=== PATIENT | female | born 1990 | race Two or more races ===

== ENCOUNTER 2024-04-26 12:46 | Emergency (ER) | payer MEDICAID, SELFPAY ==
[2024-04-26 12:48] VITALS: BMI 36.8
[2024-04-26 12:58] VITALS: BP 139/85; PULSE 85; RESP 16; TEMP 37.1; O2SAT 99
--- NOTE | 2024-04-26 13:03 | PD.EDRME ---
Rapid Medical Screening Exam RME Arrival date/time: 04/26/24 12:46 33-year-old female presents emergency department complaint of vaginal bleeding status post LEEP procedure Chief Complaint: Vaginal Bleeding Time Seen by Provider: 04/26/24 12:49 Vital signs: Vital Signs Temperature 98.8 F 04/26/24 12:58 Pulse Rate 85 04/26/24 12:58 Respiratory Rate 16 04/26/24 12:58 Blood Pressure 139/85 H 04/26/24 12:58 Pulse Oximetry (%) 99 04/26/24 12:58 Oxygen Delivery Method Room Air 04/26/24 12:58
[2024-04-26 13:27] LABS: Basophils % (Auto) 0 % (0-2.5); Eosinophils # (Auto) 0.3 Thou/mm3 (0.0-0.5); Eosinophils % (Auto) 4 % (0-10); Hematocrit 36.9 % (36.0-46.0); Hemoglobin 11.5 g/dL (12.0-16.0); Immature Granulocytes % (Auto) 0 % (0-0); Immature Granulocytes Auto 0.03 Thou/mm3 (0.00-0.00); Lymphocytes # (Auto) 2.2 Thou/mm3 (1.0-4.8); Lymphocytes % (Auto) 28 % (10-50); Mean Corpuscular HGB Conc 31.2 g/dl (31.0-37.0); Mean Corpuscular Hemoglobin 26.3 pg (25.0-35.0); Mean Corpuscular Volume 84 fL (80-100); Monocytes # (Auto) 0.4 Thou/mm3 (0.0-0.8); Monocytes % (Auto) 5 % (0-12); Neutrophils # (Auto) 4.9 Thou/mm3 (1.8-7.7); Neutrophils % (Auto) 62 % (37-80); Nucleated Red Blood Cell % 0 /100 WBC (0); Platelet Count 269 Thou/mm3 (140-440); RDW Standard Deviation 43.7 fL (36.4-46.3); Red Blood Count 4.37 Miln/mm3 (4.00-5.20); White Blood Count 7.8 Thou/mm3 (3.6-11.0)
[2024-04-26 13:44] LABS: Alanine Aminotransferase 20 U/L (10-49); Albumin, Serum 4.2 gm/dL (3.5-5.0); Albumin/Globulin Ratio 1.6 (1.2-2.2); Alkaline Phosphatase 105 U/L (46-116); Anion Gap 6 (7-16); Aspartate Amino Transferase 15 U/L (0-34); BUN/Creatinine Ratio 13 Ratio (12-20); Bilirubin,Total 0.3 mg/dL (0.3-1.2); Blood Urea Nitrogen 10 mg/dL (9-23); Calcium 9.1 mg/dL (8.3-10.6); Calcium (Corrected) 9.1 mg/dL (8.5-10.1); Carbon Dioxide 27.4 mMol/L (20.0-31.0); Chloride 108 mMol/L (98-107); Creatinine (Component) 0.8 mg/dL (0.6-1.3); Estimated Creatinine Clearance 113.4 mL/min (>60); Globulin 2.6 gm/dL (2.3-3.5); Glucose 97 mg/dL (74-106); Osmolality,Calculated 280 (275-295); Potassium 3.3 mMol/L (3.4-5.1); Sodium 141 mMol/L (136-145); Total Protein 6.8 gm/dL (5.7-8.2); eGFR > 60 See Note
[2024-04-26 13:51] LABS: Partial Thromboplastin Time 25.2 Seconds (22.0-36.0); Prothrombin Time 10.8 Seconds (9.0-12.2)
[2024-04-26 18:01] VITALS: BP 153/89; PULSE 78; RESP 18; TEMP 37.6; O2SAT 100
--- NOTE | 2024-04-26 19:11 | EDNOTE_ITS ---
ED OB Contraction Preg RMI/HPI General Chief complaint: Vaginal Bleeding Stated complaint: heavy bleeding, vag pressure with urination Time Seen by Provider: 04/26/24 12:49 Source: patient Arrival date/time: 04/26/24 12:46 33-year-old female presents emergency department complaint of vaginal bleeding status post LEEP procedure. Patient denies any fever, chills, diarrhea, flank pain, nausea vomiting, dizziness, generalized weakness, or any other associated symptoms. Mode of arrival: ambulatory Limitations: no limitations RME / HPI RME / HPI Narrative: 04/26/24 12:46 33-year-old female presents emergency department complaint of vaginal bleeding status post LEEP procedure Related Data Home Medications ?Medication ?Instructions ?Recorded ?Confirmed semaglutide (weight loss) 1 mg/0.5 1 mg subcut QWEEK 04/19/24 04/19/24 mL subcutaneous pen injector (Wegovy) Previous Rx's ?Medication ?Instructions ?Recorded ciprofloxacin HCl 250 mg tablet 250 mg PO BID 5 days #10 tabs 04/26/24 (Cipro) Allergies Allergy/AdvReac Type Severity Reaction Status Date / Time Sulfa (Sulfonamide Allergy Severe Hives Verified 04/26/24 12:52 Antibiotics) ancef Allergy Mild Hives Uncoded 04/26/24 12:52 Review of Systems Review of Systems Systems Reviewed: All systems reviewed, normal except as documented Constitutional Constitutional: Reports system reviewed and no additional complaints, except as documented, Denies body ache(s), Denies chills and Denies fever(s) Eyes Eyes: Reports system reviewed and no additional complaints, except as documented and Denies change in vision ENT Ears, Nose, Mouth, and Throat: Reports system reviewed and no additional complaints, except as documented, Denies disequilibrium, Denies dizziness, Denies sore throat and Denies vertigo Cardiovascular Cardiovascular: Reports system reviewed and no additional complaints, except as documented, Denies chest pain and Denies dyspnea Respiratory Respiratory: Reports system reviewed and no additional complaints, except as documented, Denies chest congestion, Denies cough and Denies dyspnea Gastrointestinal Gastrointestinal: Reports system reviewed and no additional complaints, except as documented, Denies abdominal pain, Denies nausea and Denies vomiting Genitourinary Genitourinary: Reports abnormal vaginal bleeding Musculoskeletal Musculoskeletal: Reports system reviewed and no additional complaints, except as documented, Denies abnormal gait and Denies arthralgias Integumentary/Breasts Skin/Breast: Reports system reviewed and no additional complaints, except as documented, Denies erythema, Denies rash and Denies wounds Neurologic Neurologic: Reports system reviewed and no additional complaints, except as documented, Denies abnormal gait, Denies disequilibrium, Denies dizziness and Denies vertigo Past Medical History Past Medical History NEUROLOGIC: Positive Neurological Disorders and Migraine; Negative Seizures CARDIAC: Negative Cardiac Disorders or Congestive Heart Failure RESPIRATORY: Negative Chronic Obstructive Pulmonary Disease (COPD) GASTROINTESTINAL: Positive Gastrointestinal Disorders and Obesity; Negative Hepatitis GENITOURINARY: Positive Genitourinary Disorders and Kidney Stones; Negative Renal Disease REPRODUCTIVE: Positive Previous Pregnancies (x4, x5 children) MUSCULOSKELETAL: Negative Musculoskeletal Disorders ENDOCRINE: Negative Endocrine Disorders, Diabetes Mellitus Type 1 or Diabetes Mellitus Type 2 HEMATOLOGIC: Negative Blood Disorders or Anemia PSYCHO/SOCIAL: Positive Depression and Anxiety OTHER HISTORY: Positive Chicken Pox; Negative Hospitalization, Autoimmune Disease, Shingles, Falls, Blood Transfusions, Blood Transfusion Reaction, Anesthesia Reactions, Chemotherapy, Radiation Therapy, MRSA or Cancer Family History FAMILY HISTORY: Positive Family Cardiac Disorders, Family Cancer and Family Surgery; Negative Family Psychiatric Problems, Family Respiratory Disorders, Family Gastrointestinal Problems or Family Anesthesia Reaction Surgical History SURGICAL: Positive Tubal Ligation and Section Social History SMOKING STATUS: Never smoker SECOND HAND EXPOSURE: No ED Exam General Limitations: Present no limitations General appearance: Present alert and in no apparent distress Head Head exam: Present atraumatic Eye Eye exam: Present normal appearance, PERRL and EOMI ENT ENT exam: Present normal exam, normal oropharynx and mucous membranes moist Neck Neck exam: Present normal inspection, full ROM and trachea midline Chest Chest inspection: Present normal inspection and symmetric chest wall rise Respiratory Respiratory exam: Present normal lung sounds bilaterally Cardiovascular Cardiovascular exam: Present regular rate, normal rhythm and normal heart sounds Abdominal Exam Abdominal exam: Present soft and normal bowel sounds Extremities Exam Extremities exam: Present normal inspection and full ROM Back Exam Back exam: Present normal inspection and full ROM Neurological Exam Neurological exam: Present alert, oriented X3 and CN II-XII intact Psychiatric Psychiatric exam: Present normal affect and normal mood Skin Skin exam: Present warm, dry, intact and normal color Course Quality Measures none Orders Category Date Time Status CBC Stat Lab 04/26/24 13:06 Completed Comprehensive Metabolic Panel Stat Lab 04/26/24 13:06 Completed Partial Thromboplastin Time Stat Lab 04/26/24 13:06 Completed Prothrombin Time with INR Stat Lab 04/26/24 13:06 Completed Type and Screen Stat Lab 04/26/24 13:06 Completed Urinalysis, C/S if Indicated Stat Lab 04/26/24 20:02 Completed Urine Culture Stat Lab 04/26/24 20:02 Received Vital Signs Vital signs: Vital Signs Temperature 98.8 F 04/26/24 12:58 Pulse Rate 85 04/26/24 12:58 Respiratory Rate 16 04/26/24 12:58 Blood Pressure 139/85 H 04/26/24 12:58 Pulse Oximetry (%) 99 04/26/24 12:58 Oxygen Delivery Method Room Air 04/26/24 12:58 99% room air within normal limits Vaginal Bleeding MDM Narrative MDM Narrative: 33-year-old female presents emergency department complaint of vaginal bleeding status post LEEP procedure. Patient denies any fever, chills, diarrhea, flank pain, nausea vomiting, dizziness, generalized weakness, or any other associated symptoms. CBC unremarkable for any leukocytosis and hemoglobin 11.5 previous was 11.7. CMP was unremarkable other than mild hypokalemia at 3.3. Urinalysis consistent with urinary tract infection. Patient appears nontoxic and hemodynamically stable. Patient discharged home and instructed to follow-up with [facility] and primary care provider in 24 to 48 hours. Instructed to return to the emergency department immediately if increased vaginal bleeding or worsening symptoms. Patient data External records reviewed:: [facility] previous records Clinical information provided by:: patient Social determinants that could affect healthcare access:: none Patient has the following chronic illnesses:: See chart How is presenting disease/condition affected by chronic disease/condition?: uneffected by Evaluation data The following diagnostics were reviewed and interpreted by me:: lab results Lab and/or radiology exams considered but not ordered:: Ordered Interpretation Summary: Interpreted by me Medications / Prescriptions Medications or Prescriptions considered but not ordered:: N/A Medication administrations:: N/A Consultations Consultation(s) initiated? (list below): No Diagnosis Vaginal Bleeding Differential Diagnosis: dysfunctional uterine bleeding and vaginal bleeding Most likely diagnosis given after review of the tests above:: Vaginal bleeding UTI Admission Indicated Admission indicated?: not indicated Admission Request Was there a request for admission?: No Disposition Plan Disposition Plan: Discharge Discharge Attestation Discharge Attestation: The patient and all family members were given an opportunity to ask questions and understood the discharge instructions. Discharge instructions specifically effects, indications for sooner follow up or return to the emergency department, and the expected course of current diagnosis. Patient condition: Stable Discharge Plan Plan Patient Disposition: HOME (Self Care) Disposition Comment: Stable Prescriptions/Referrals Prescriptions/Med Rec: New ciprofloxacin HCl [Cipro] 250 mg tablet 250 mg PO BID 5 Days Qty: 10 0RF No Action Wegovy 1 mg/0.5 mL pen injector 1 mg SUBCUT QWEEK Patient Comments: INJECT 1 MG SUBCUTANEOUSLY EVERY WEEKL FOR 4 WEEKS Referrals: Candida Uribe PA-C [Primary Care Provider] - In 1 week Problem List Clinical Impression: Vaginal bleeding, UTI (urinary tract infection) Patient/Caregiver Discharge Instructions Discharge Activity: activity as tolerated Education Materials: Understanding Uterine Bleeding Additional Instructions: Follow-up with [facility] Dr Meza as discussed. Follow-up with primary care provider 2 to 3 days. Return to the emergency department for any worsening symptoms or as needed. Print Language: Cambodian Stand Alone Forms: Linda Award Info., Patient Portal Info Letter Attestation Attestation The patient was seen by the midlevel practitioner. I, the co-signing physician, was present during the entire ER visit. While I did not physically examine the patient, I was available for consultation as needed.
[2024-04-26 20:17] LABS: Collection Type, Urine Clean Catch
[2024-04-26 20:29] LABS: Bilirubin,Urine Negative (Negative); Blood,Urine 3+ (Negative); Calcium Oxalate Crystals,Urine 4+; Clarity,Urine Turbid (Clear/Hazy); Color,Urine Yellow (Lt Yel-Yel); Glucose, Urine Negative (Negative); Ketones,Urine Negative (Negative); Leukocyte Esterase,Urine Positive (Negative); Nitrite,Urine Negative (Negative); Protein,Urine 2+ (Neg - Trace); RBC,Urine 3632 /hpf (0-3); Specific Gravity,Urine 1.022 (1.001-1.035); Squamous Epithelial Cell,Urine 4 /hpf (0-5); Urobilinogen,Urine Negative mg/dL (0.0-1.0); WBC,Urine 92 /hpf (0-5)
[2024-04-26 20:33] LABS: Culture Indicated,Urine Yes
== END 2024-04-26 19:25 | disposition home or self-care (01) ==
PROVIDERS: Nurse Practitioner Primary Care; Emergency Provider Emergency Medicine; PCP Physician Assistant
DX: N93.9 Abnormal uterine and vaginal bleeding, unspecified (principal); N39.0 Urinary tract infection, site not specified
CPT/HCPCS: 36415; 80053; 81001; 85025; 85610; 85730; 86850; 86900; 86901; 87077; 87086; 87186; 99283

== ENCOUNTER 2024-05-08 13:14 | Observation (INO) | payer MEDICAID, SELFPAY ==
[2024-05-08 13:33] VITALS: BP 134/77; PULSE 95; RESP 18; TEMP 37.7; O2SAT 98; BMI 36.6
--- NOTE | 2024-05-08 13:42 | XR_ITS ---
Examination: CT abdomen and pelvis without contrast. Coronal 3-D reconstructions. Sagittal 2-D reconstructions. Date and time of exam:May 08, 2024 1452 h Indications: Abdominal pain lower right back pain, fever chills beginning 2 days ago, history of tubal ligation March 2024 D&C April 2024 CTDI: vol (mGy): 14.5 DLP: (mGycm): 805 Technique: Axial images of the abdomen have been obtained, 3 mm slice thickness Intravenous contrast material has not been administered. Low dose protocols were performed. One or more of the following dose reduction techniques were used; automated exposure control, adjustment of the mA and/or KV according to patient size, use of iterative reconstruction technique. Findings: Diffuse fatty infiltration throughout the liver Mild hepatosplenomegaly Contracted gallbladder No pancreatic or adrenal mass 4 mm 2 mm 1 mm right renal calculi Normal appendix No hydronephrosis or ureteral calculi Significantly enlarged uterus with dilated endometrial stripe containing air density Bladder intact Osseous structures intact Impression: Nonobstructing right renal calculi Significantly enlarged uterus with thickened endometrial stripe containing air densities Recommend transvaginal prominence abdominal pelvic sonography follow-up
--- NOTE | 2024-05-08 13:43 | PD.EDRME ---
Rapid Medical Screening Exam RME Arrival date/time: 05/08/24 13:14 33-year-old female with recent Hysteroscopy, fractional dilatation and curettage, and NovaSure endometrial ablation and LEEP cone biopsy of cervix. Presents with complaint of lower back pain and fever. Chief Complaint: Flu Like Symptoms Time Seen by Provider: 05/08/24 13:28 Vital signs: Vital Signs Temperature 100 F 05/08/24 13:33 Pulse Rate 95 05/08/24 13:33 Respiratory Rate 18 05/08/24 13:33 Blood Pressure 134/77 H 05/08/24 13:33 Pulse Oximetry (%) 98 05/08/24 13:33 Oxygen Delivery Method Room Air 05/08/24 13:33
[2024-05-08 14:02] LABS: Lactate (Lactic Acid) 0.7 mMol/L (0.4-2.0)
[2024-05-08 14:06] LABS: Basophils % (Auto) 0 % (0-2.5); Eosinophils # (Auto) 0.2 Thou/mm3 (0.0-0.5); Eosinophils % (Auto) 1 % (0-10); Hematocrit 34.3 % (36.0-46.0); Hemoglobin 10.8 g/dL (12.0-16.0); Immature Granulocytes % (Auto) 0 % (0-0); Immature Granulocytes Auto 0.06 Thou/mm3 (0.00-0.00); Lymphocytes # (Auto) 1.5 Thou/mm3 (1.0-4.8); Lymphocytes % (Auto) 10 % (10-50); Mean Corpuscular HGB Conc 31.5 g/dl (31.0-37.0); Mean Corpuscular Volume 83 fL (80-100); Monocytes # (Auto) 0.7 Thou/mm3 (0.0-0.8); Monocytes % (Auto) 4 % (0-12); Neutrophils # (Auto) 12.9 Thou/mm3 (1.8-7.7); Neutrophils % (Auto) 84 % (37-80); Nucleated Red Blood Cell % 0 /100 WBC (0); Platelet Count 320 Thou/mm3 (140-440); RDW Standard Deviation 43.2 fL (36.4-46.3); Red Blood Count 4.15 Miln/mm3 (4.00-5.20); White Blood Count 15.3 Thou/mm3 (3.6-11.0)
[2024-05-08 14:24] LABS: Collection Type, Urine Clean Catch; Squamous Epithelial Cell,Urine 0 /hpf (0-5)
[2024-05-08 14:34] LABS: Alanine Aminotransferase 19 U/L (10-49); Albumin, Serum 4.2 gm/dL (3.5-5.0); Albumin/Globulin Ratio 1.6 (1.2-2.2); Alkaline Phosphatase 104 U/L (46-116); Anion Gap 5 (7-16); Aspartate Amino Transferase 15 U/L (0-34); BUN/Creatinine Ratio 13 Ratio (12-20); Bilirubin,Total 0.3 mg/dL (0.3-1.2); Blood Urea Nitrogen 9 mg/dL (9-23); Calcium 9.4 mg/dL (8.3-10.6); Calcium (Corrected) 9.4 mg/dL (8.5-10.1); Carbon Dioxide 27.6 mMol/L (20.0-31.0); Chloride 106 mMol/L (98-107); Creatinine (Component) 0.7 mg/dL (0.6-1.3); Globulin 2.6 gm/dL (2.3-3.5); Glucose 98 mg/dL (74-106); Osmolality,Calculated 276 (275-295); Potassium 3.4 mMol/L (3.4-5.1); Procalcitonin 0.08 ng/ml (0.0-0.49); Sodium 139 mMol/L (136-145); Total Protein 6.8 gm/dL (5.7-8.2); eGFR > 60 See Note
[2024-05-08 14:58] LABS: Bilirubin,Urine Negative (Negative); Blood,Urine 3+ (Negative); Clarity,Urine Bloody (Clear/Hazy); Color,Urine Drk-Red (Lt Yel-Yel); Glucose, Urine Negative (Negative); Ketones,Urine Negative (Negative); Leukocyte Esterase,Urine Positive (Negative); Nitrite,Urine Negative (Negative); PH,Urine 7.5 (5.0-7.0); Protein,Urine 1+ (Neg - Trace); RBC,Urine 8703 /hpf (0-3); Specific Gravity,Urine 1.016 (1.001-1.035); Urobilinogen,Urine Negative mg/dL (0.0-1.0); WBC,Urine 57 /hpf (0-5)
--- NOTE | 2024-05-08 16:12 | EDNOTE_ITS ---
Upper Respiratory Inf. RME/HPI General Chief Complaint: Flu Like Symptoms Stated Complaint: NAUSEA, CHILLS, BACK PAIN Time Seen by Provider: 05/08/24 13:28 Arrival date/time: 05/08/24 13:14 RME / HPI RME / HPI Narrative: 33-year-old female patient with recent Hysteroscopy, fractional dilatation and curettage, and NovaSure endometrial ablation and LEEP cone biopsy of cervix, about 2 weeks ago, came in for evaluation regarding low back pain on and off fever. And chills. Patient symptoms started few days prior to ER visit. Severity of symptoms moderate. Was seen by PANTOGRAPH OPERATOR, and was diagnosed with bacterial vaginosis, and currently taking Flagyl on her second day. Patient denies any vomiting. Denies any abdominal pain. Denies any other complaints or medications taken prior travel. Related Data Home Medications ?Medication ?Instructions ?Recorded ?Confirmed semaglutide (weight loss) 1 mg/0.5 1 mg subcut QWEEK 04/19/24 04/19/24 mL subcutaneous pen injector (Dogiy) Allergies Allergy/AdvReac Type Severity Reaction Status Date / Time Sulfa (Sulfonamide Allergy Severe Hives Verified 05/08/24 13:18 Antibiotics) ancef Allergy Mild Hives Uncoded 04/26/24 12:52 Review of Systems Review of Systems Narrative Review of Systems: Review of system reviewed and within normal limits except mentioned in HPI ED Exam Narrative Physical exam: VITAL SIGNS: Reviewed. GENERAL APPEARANCE: Alert and interactive, follows commands, no acute distress, HEAD AND FACE: Non-traumatic. ENT: PERRL, pink conjunctivitis, eyelid no trauma, Mucous membrane moist. NECK: Supple, nontender, no nuchal rigidity. CHEST: No tenderness, no crepitus, no paradoxical movement, no retractions. LUNGS: Clear, well ventilated, symmetric, no rales, no wheezing, no ronchi, no stridor, good breath sounds bilaterally. HEART: Regular rate, regular rhythm, no murmur, no gallops. ABDOMEN: Soft, positive bowel sounds, nondistended, no guarding, nontender, no rebound, no masses, RECTAL: Deferred. GENITAL: Deferred. NEUROLOGICAL: Gross motor function intact sensory function intact, Appropriate for age. MUSCULOSKELETAL: low back nontender, full range of motion. EXTREMITIES: Nontender, full range of motion. SKIN: Color pink, dry, no rash, no lacerations, no abrasions, no contusions. LYMPHATICS: Deferred. Course Quality Measures none Orders Category Date Time Status Place in Observation Status Routine Admission 05/08/24 20:02 Active Bedside COVID-19 Antigen Test NOW Care 05/08/24 16:09 Active Bedside Influenza A&B Antigen Test NOW Care 05/08/24 16:09 Completed COVID-19 Screening Questionnaire NOW Care 05/08/24 20:02 Active Decision to Admit X1 Care 05/08/24 20:[address] abdomen pelvis wo con Stat Exams 05/08/24 13:42 Completed US transvaginal Stat Exams 05/08/24 16:35 Completed Blood Culture (Lab) Stat Lab 05/08/24 13:55 Received CBC Stat Lab 05/08/24 13:51 Completed Comprehensive Metabolic Panel Stat Lab 05/08/24 13:51 Completed Lactate (Lactic Acid) Stat Lab 05/08/24 13:51 Completed Procalcitonin Stat Lab 05/08/24 13:51 Completed Urinalysis Stat Lab 05/08/24 14:17 Completed Urine Culture Stat Lab 05/08/24 14:17 Received Ketorolac Inj [Toradol Inj] Med 05/08/24 16:12 Discontinued 30 mg IM X1 ONE Ketorolac Inj [Toradol Inj] Med 05/08/24 17:39 Discontinued 30 mg IVP X1 ONE Ketorolac Inj [Toradol Inj] Med 05/08/24 17:32 Discontinued 60 mg IVP X1 ONE Ondansetron Odt [Zofran Odt] Med 05/08/24 16:12 Discontinued 4 mg PO X1 ONE cefTRIAXone/D5w 1gm IV premix [Rocephin/D5w 1gm IV Med 05/08/24 16:35 Discontinued premix] 50 ml IV X1 Vital Signs Vital signs: Vital Signs Temperature 100 F 05/08/24 13:33 Pulse Rate 95 05/08/24 13:33 Respiratory Rate 18 05/08/24 13:33 Blood Pressure 134/77 H 05/08/24 13:33 Pulse Oximetry (%) 98 05/08/24 13:33 Oxygen Delivery Method Room Air 05/08/24 13:33 Upper Respiratory Infection MDM Narrative MDM Narrative:: 33-year-old female patient with recent Hysteroscopy, fractional dilatation and curettage, and NovaSure endometrial ablation and LEEP cone biopsy of cervix, about 2 weeks ago, came in for evaluation regarding low back pain on and off fever. And chills. Patient symptoms started few days prior to ER visit. Severity of symptoms moderate. Was seen by PANTOGRAPH OPERATOR, and was diagnosed with bacterial vaginosis, and currently taking Flagyl on her second day. Patient denies any vomiting. Denies any abdominal pain. Denies any other complaints or medications taken prior travel. Laboratory workup is significant for slight leukocytosis and a UTI. CT scan of the abdomen and pelvis showed enlarged uterus with air densities noted. Discussed this case with Dr Meza patient's PANTOGRAPH OPERATOR, who requested transvaginal ultrasound. Patient was also given IV Rocephin. 8 pm Spoke again with Dr Meza, and admitted the patient. Patient data External records reviewed:: None Clinical information provided by:: none Social determinants that could affect healthcare access:: none Patient has the following chronic illnesses:: None How is presenting disease/condition affected by chronic disease/condition?: no chronic disease Evaluation data The following diagnostics were reviewed and interpreted by me:: lab results and radiology exam(s) Lab and/or radiology exams considered but not ordered:: None Interpretation Summary: Laboratory workup is significant for slight leukocytosis and a UTI. CT scan of the abdomen and pelvis showed enlarged uterus with air densities noted. Ultrasound of the pelvis showed Diffusely enlarged uterus, no discrete uterine mass, no intrauterine gestation Markedly thickened endometrium, containing air and fluid likely blood, clinical correlation advised Medications / Prescriptions Medications or Prescriptions considered but not ordered:: None Medication administrations:: Medication Administration History Discontinued Medications Ceftriaxone Sodium/Dextrose (Rocephin/D5w 1gm Iv Premix) 50 mls @ 100 mls/hr IV X1 ONE Stop: 05/08/24 17:04 Last Infusion: 05/08/24 18:27 Dose: Infused Documented By: Admin: 05/08/24 17:35 Dose: 100 mls/hr Documented By: FRANCISCA Ketorolac Tromethamine (Ketorolac Inj 60 Mg/2 Ml Vial) 30 mg IM X1 ONE Stop: 05/08/24 16:13 Last Admin: 05/08/24 17:47 Dose: Not Given Documented By: FRANCISCA Non-Admin Reason: Discontinued Ketorolac Tromethamine (Ketorolac Inj 30 Mg/Ml Vial) 60 mg IVP X1 ONE Stop: 05/08/24 17:33 Last Admin: 05/08/24 17:48 Dose: Not Given Documented By: FRANCISCA Non-Admin Reason: Discontinued Ketorolac Tromethamine (Ketorolac Inj 30 Mg/Ml Vial) 30 mg IVP X1 ONE Stop: 05/08/24 17:40 Last Admin: 05/08/24 17:44 Dose: 30 mg Documented By: FRANCISCA Ondansetron HCl (Ondansetron Odt 4 Mg Tabrap) 4 mg PO X1 ONE; Protocol Stop: 05/08/24 16:13 Last Admin: 05/08/24 17:37 Dose: 4 mg Documented By: FRANCISCA Zofran Toradol and Suprax and IV Consultations Consultation(s) initiated? (list below): Yes Consultation #1 (Physician, Specialty, Details): Dr Meza, PANTOGRAPH OPERATOR of the patient. Diagnosis Upper Respiratory Differential Diagnosis: upper respiratory infection, influenza and other (Endometritis, UTI,, flu) Most likely diagnosis given after review of the tests above:: Endometritis, UTI, flu Admission Indicated Admission indicated?: indicated Explain why admission is indicated or not indicated:: Patient is to be admitted for further management. Admission Request Was there a request for admission?: Yes Admission Attestation Admission request attestation: Dr Meza agrees to accept the patient for admission. Disposition Plan Disposition Plan: Admit Discharge Plan Plan Patient Disposition: Admit Acute Care w/in Hospital Disposition Comment: stable Prescriptions/Referrals Prescriptions/Med Rec: No Action Wegovy 1 mg/0.5 mL pen injector 1 mg SUBCUT QWEEK Patient Comments: INJECT 1 MG SUBCUTANEOUSLY EVERY WEEKL FOR 4 WEEKS Referrals: Candida Uribe PA-C [Primary Care Provider] - In 1 week Problem List Clinical Impression: UTI (urinary tract infection), Flu, Endometritis Patient/Caregiver Discharge Instructions Print Language: Norwegian Stand Alone Forms: Linda Award Info., Patient Portal Info Letter
[2024-05-08 16:13] VITALS: BP 124/69; PULSE 87; RESP 19; TEMP 37.2; O2SAT 99
--- NOTE | 2024-05-08 16:35 | XR_ITS ---
Examination: Transvaginal ultrasound of the pelvis, complete Technique: Transvaginal sonographic images pelvis performed using khanna scale imaging Exam date and time: May 08, 2024 1910 hrs. Indications: Endometrial ablation April 20, 2024 followed by heavy bleeding Findings: Uterus 12.0 x 6.8 x 9.1 cm No discrete mass Markedly thickened endometrium with air,, part of which is clotted blood with blood also in the lower uterine segment No intrauterine gestation Ovaries obscured by bowel gas Impression: Diffusely enlarged uterus, no discrete uterine mass, no intrauterine gestation Markedly thickened endometrium, containing air and fluid likely blood, clinical correlation advised
--- NOTE | 2024-05-08 17:30 | PC.NURSE ---
In to assess pt. Pt from home with c/o fever and lower back pain. Pt reports recent Hysteroscopy, fractional dilatation and curettage, NovaSure endometrial ablation and LEEP cone biopsy of cervix on 04/20/24. Reports onset of vaginal bleeding 2 days after procedure and is still bleeding today. Pt states she was seen by DENTAL OFFICE COORDINATOR, and was diagnosed with bacterial vaginosis, and currently taking Flagyl on her second dayafter. Pt without further complaints at this time. Orders received and initiated. Call light placed within reach. Plan of care ongoing.
[2024-05-08] MEDS: cefTRIAXone/D5w 1gm IV premix 50 ML IV (17:35)
[2024-05-08] MEDS: ONDANSETRON ODT 4 MG TABRAP PO (17:37)
[2024-05-08] MEDS: KETOROLAC INJ 30 MG/ML VIAL IVP ×2 (17:44→23:25)
[2024-05-08 18:16] VITALS: BP 126/73; PULSE 87; RESP 19; TEMP 37.6; O2SAT 100
--- NOTE | 2024-05-08 20:18 | PC.NURSE ---
Dr. Meza s/t pt via telephone to explain what/why the pt is being admitted and plan of treatment, pt verbalized understaing
[2024-05-08 20:19] VITALS: BP 142/76; PULSE 84; RESP 16; TEMP 36.8; O2SAT 100
--- NOTE | 2024-05-08 20:35 | ESHP_ITS ---
Documentation for date of: 05/08/24 MORTGAGE OPERATIONS MANAGER - HPI History of Present Illness History of present illness: H and P dictated in Nuance [id number] Meds Home Medications and Allergies Home Medications ?Medication ?Instructions ?Recorded ?Confirmed ?Type semaglutide (weight loss) 1 mg/0.5 1 mg subcut QWEEK 04/19/24 04/19/24 History mL subcutaneous pen injector (Wegovy) Allergies Allergy/AdvReac Type Severity Reaction Status Date / Time Sulfa (Sulfonamide Allergy Severe Hives Verified 05/08/24 13:18 Antibiotics) ancef Allergy Mild Hives Uncoded 04/26/24 12:52 Exam - MORTGAGE OPERATIONS MANAGER Vital Signs Temp Pulse Resp BP Pulse Ox O2 Del Method 98.3 F 84 16 142/76 H 100 Room Air 05/08/24 20:19 05/08/24 20:19 05/08/24 20:19 05/08/24 20:19 05/08/24 20:19 05/08/24 20:19 MORTGAGE OPERATIONS MANAGER - Results Labs 05/08/24 13:51 05/08/24 13:51 Labs: Short CBC 05/08/24 Range/Units 13:51 WBC 15.3 H (3.6-11.0) Thou/mm3 Hgb 10.8 L (12.0-16.0) g/dL Hct 34.3 L (36.0-46.0) % Plt Count 320 D (140-440) Thou/mm3 BMP 05/08/24 13:51 Sodium 139 Potassium 3.4 Chloride 106 Carbon Dioxide 27.6 BUN 9 Creatinine 0.7 Glucose 98 Calcium 9.4 Liver Function 05/08/24 Range/Units 13:51 Total Bilirubin 0.3 (0.3-1.2) mg/dL AST 15 (0-34) U/L ALT 19 (10-49) U/L Alkaline Phosphatase 104 (46-116) U/L Albumin 4.2 (3.5-5.0) gm/dL Urine 05/08/24 Range/Units 14:17 Urine Color Drk-Red A (Lt Yel-Yel) Urine Clarity Bloody A (Clear/Hazy) Urine pH 7.5 H (5.0-7.0) Ur Specific [place] 1.016 (1.001-1.035) Urine Protein 1+ A (Neg - Trace) Urine Glucose (UA) Negative (Negative) Quality Measures Quality Measures none
--- NOTE | 2024-05-08 20:57 | ESHP_ITS ---
RE: TRELL JAIMES : 1990 DATE OF ADMISSION: 05/08/2024 This is a 33-year-old 4, para 4, who underwent a endometrial ablation and LEEP procedure on 04/20/2024, who presented to the emergency room today complaining of low back pain and fever and chills. The patient was seen in the emergency room on 04/26/24 and diagnosed with a urinary tract infection and given a prescription for Cipro. Her urine culture returned showing E. coli sensitive to all antibiotics. However, the patient claims that she did not take the prescription for Cipro. She was seen in the office yesterday and was complaining of some bleeding off and on and uterine cramping and vaginal discharge and Affirm swab test showed bacterial vaginosis and she was started on Flagyl yesterday, and instructed to start/continue taking the Cipro. Late Friday and today she reported developing worsening back pain, then fever and chills and presented to the emergency room this evening. Shes had bleeding off and on since the procedure but nothing excessive. The patient denies any nausea or vomiting. She denies any abdominal or pelvic pain. She reports voiding frequently. Denies any dysuria. ALLERGIES: SULFA AND ANCEF. MEDICATIONS: Flagyl 500 mg 1 p.o. b.i.d. PAST MEDICAL HISTORY: Chronic hypertension, endometriosis, delivery, kidney stones, latent tuberculosis infection, cervical dysplasia. Urinary tract infection E. coli on 04/26/2024. SOCIAL HISTORY: She denies any alcohol, drug use or smoking. OBSTETRIC HISTORY: Two previous full-term, normal vaginal deliveries and 2 previous deliveries. PAST SURGICAL HISTORY: delivery 2017 and 2022, bilateral tubal ligation in 2022, hysteroscopy, fractional dilatation and curettage, NovaSure endometrial ablation and LEEP cone biopsy of the cervix 04/20/2024. FAMILY HISTORY: Maternal grandfather depression and anxiety. Mother, migraine headaches and hypertension. Father, heart disease. Cousin with muscular dystrophy. REVIEW OF SYSTEMS: She denies any chest pain, palpitations, cough, shortness of breath or lower extremity pain. PHYSICAL EXAMINATION: VITAL SIGNS: Blood pressure 142/76, heart rate 84, respirations 16, temperature is 98.3, pulse oximetry is 100% on room air. HEENT: Oropharynx and sclerae are clear. LUNGS: Clear to auscultation bilaterally. HEART: Regular rate and rhythm. ABDOMEN: Nontender, nondistended. Flank pain. No CVA tenderness. EXTREMITIES: Nontender. No edema. SKIN: No gross rashes or lesion. NEUROLOGIC: No focal deficits. White blood cell count is 15.3, hemoglobin is 10.8, neutrophils 84%. Urinalysis by clean catch shows 8000 red blood cells per high power field, 57 white blood cells per high power field. Bedside COVID and influenza A and B testing negative. Urine culture 04/26/2024, E. coli sensitive to ceftriaxone. CT scan shows right renal pelvis calculi: 4mm, 2 mm and 1 mm with no ureteral stones or hydronephrosis. TVS shows endometrial cavity contains blood with endometrial thickening consistent with endometritis. ASSESSMENT: Pyelonephritis/endometritis. PLAN: Rocephin and Flagyl IV antibiotics, and IV pain management. The patient necessitates hospitalization for treatment due to failed outpatient treatment for her UTI infection which has now ascended to pyelonephritis and endometritis. Without IV antibiotic therapy she could develop sepsis. She does not meet criteria for sepsis at this time. Anticipate discharge home within 24 hours if remains afebrile with no excessive vaginal bleeding and we can control her pain with oral opioid analgesia. I discussed with the patient the nature of her condition and recommended treatment plan. All questions answered. Follow urine culture and blood culture results as an outpatient. DT: 20:35:21 TT: 20:55:00 Ref: [id number] - TID: [id number] [facility]
[2024-05-08] MEDS: metroNIDAZOLE/NS 500 MG IVPB 500 MG/100 ML BAG 200 MG IV (21:40)
[2024-05-08 23:09] VITALS: BP 122/78; PULSE 61; RESP 16; TEMP 37.1; O2SAT 100
[2024-05-08 23:14] VITALS: BMI 36.9
--- NOTE | 2024-05-08 23:35 | PC.NURSE ---
Assumed care for patient presented self as primary nurse. Plan of care reviewed with patient all questions answered.. Call light with in reach, safety reviewed.
[2024-05-08 23:44] VITALS: BP 122/72; PULSE 75; RESP 18; TEMP 36.5; O2SAT 99
[2024-05-09] MEDS: metroNIDAZOLE/NS 500 MG IVPB 500 MG/100 ML BAG 200 MG IV ×2 (05:11→14:27)
[2024-05-09 06:22] LABS: Basophils % (Auto) 0 % (0-2.5); Eosinophils # (Auto) 0.2 Thou/mm3 (0.0-0.5); Eosinophils % (Auto) 2 % (0-10); Hematocrit 29.1 % (36.0-46.0); Hemoglobin 9.2 g/dL (12.0-16.0); Immature Granulocytes % (Auto) 0 % (0-0); Immature Granulocytes Auto 0.04 Thou/mm3 (0.00-0.00); Lymphocytes # (Auto) 1.5 Thou/mm3 (1.0-4.8); Lymphocytes % (Auto) 15 % (10-50); Mean Corpuscular HGB Conc 31.6 g/dl (31.0-37.0); Mean Corpuscular Hemoglobin 26.1 pg (25.0-35.0); Mean Corpuscular Volume 83 fL (80-100); Monocytes # (Auto) 0.6 Thou/mm3 (0.0-0.8); Monocytes % (Auto) 6 % (0-12); Neutrophils # (Auto) 7.9 Thou/mm3 (1.8-7.7); Neutrophils % (Auto) 77 % (37-80); Nucleated Red Blood Cell % 0 /100 WBC (0); Platelet Count 273 Thou/mm3 (140-440); RDW Standard Deviation 43.4 fL (36.4-46.3); Red Blood Count 3.52 Miln/mm3 (4.00-5.20); White Blood Count 10.3 Thou/mm3 (3.6-11.0)
[2024-05-09] MEDS: KETOROLAC INJ 30 MG/ML VIAL IVP (07:42)
[2024-05-09 08:00] VITALS: BP 118/74; PULSE 71; RESP 17; TEMP 36.9; O2SAT 97
[2024-05-09] MEDS: HYDROcodone/APAP 5/325 TABLET 1 TAB PO (09:44)
[2024-05-09] MEDS: cefTRIAXone 2 GM in SODIUM CHLORIDE 0.9% (P) 50 ML IV (09:45)
--- NOTE | 2024-05-09 10:17 | ESPR_ITS ---
RE: TRELL JAIMES : 1990 DATE OF SERVICE: 05/09/2024 S: The patient still reports significant back pain, which was relieved with Toradol 30 mg IV. She has been getting Toradol every 6 hours for back pain. The patient reports the back pain is low down in the midline. Denies any flank pain. She denies any nausea or vomiting. She has got vaginal bleeding, but it is not excessive. She denies any dizziness or lightheadedness. She denies any abdominal or pelvic pain. She is voiding and ambulating without difficulty. She denies any chest pain, palpitation, shortness of breath, or lower extremity pain. She remains afebrile. T-max was 100.0 at 13:33 yesterday. VITAL SIGNS: Blood pressure 118/74, heart rate 71, respirations 17, temperature is 98.4, and pulse oximetry is 97% on room air. LUNGS: Clear to auscultation bilaterally. HEART: Regular rate and rhythm. ABDOMEN: Nontender, nondistended. FLANK: No CVA tenderness. EXTREMITIES: Nontender. No edema. LABORATORY DATA: White blood cell count went from 15.3 to 10.3, hemoglobin went from 10.8 to 9.2. ASSESSMENT AND PLAN: Pyelonephritis and endometritis, improving. Plan is to continue IV antibiotics to the 24-hour observation point and then discharge home if she can get adequate relief of her back pain with oral opioid analgesia. Plan is to discharge home with Levaquin and Flagyl. She will followup in the office tomorrow for continued Rocephin at 1 gram every 24 hours IM for the next 3 days. We will follow the blood cultures and urine cultures as an outpatient. Anemia, but hemodynamically stable. Plan is to discharge home with oral iron. All prescriptions have been sent to the patient's pharmacy through the office computer. DT: 09:30:53 TT: 10:15:00 Ref: [id number] - TID: [id number] MTDD
[2024-05-09 12:00] VITALS: BP 111/67; PULSE 75; RESP 14; TEMP 36.2; O2SAT 98
[2024-05-09 16:00] VITALS: BP 120/75; PULSE 94; RESP 17; TEMP 37; O2SAT 99
== END 2024-05-09 18:37 | disposition home or self-care (01) ==
LOC: SERX 20:03 → S3NX 05-09 09:32 → SERHOLD 05-10 08:15
PROVIDERS: Nurse Practitioner Primary Care; Admitting Provider Specialist; Emergency Provider Emergency Medicine; PCP Physician Assistant; Visit Provider Specialist
DX: N76.0 Acute vaginitis (principal); Z87.442 Personal history of urinary calculi; Z87.440 Personal history of urinary (tract) infections; Z82.49 Family history of ischemic heart disease and other diseases of the circulatory system; R93.89 Abnormal findings on diagnostic imaging of other specified body structures; N12 Tubulo-interstitial nephritis, not specified as acute or chronic; I10 Essential (primary) hypertension; Z88.1 Allergy status to other antibiotic agents; D64.9 Anemia, unspecified
CPT/HCPCS: 36415; 74176; 76830; 80053; 81001; 83605; 84145; 85025; 87040; 87077; 87086; 87186; 87400; 87811; 96365; 96366; 96367; 96375; 99285; G0378; J0696; J1885; J3490; J7050; Q0162; A9270; J1836

== ENCOUNTER 2024-05-23 19:52 | Emergency (ER) | payer MEDICAID, SELFPAY ==
[2024-05-23 19:54] VITALS: BMI 36.6
--- NOTE | 2024-05-23 20:02 | EKG_ITS ---
[facility] Test Date: 2024-05-23 Pat Name: TRELL JAIMES Department: Room: - Gender: Female Bar Tender: : 1990 Requested By: ED Temporary Provider Order Number: [id number] Reading MD: ED Temporary Provider Measurements Intervals [place] Rate: 82 P: 31 WV: 166 QRS: -2 QRSD: 86 T: 19 QT: 329 QTc: 385 Interpretive Statements SINUS RHYTHM LOW QRS VOLTAGE IN PRECORDIAL LEADS [QRS DEFLECTION < 1.0 mV IN CHEST LEADS] ANTEROSEPTAL MYOCARDIAL INFARCTION , OF INDETERMINATE AGE [40+ ms Q WAVE IN V1-V4] Compared to ECG 10/02/2023 14:36:18 Low QRS voltage now present Myocardial infarct finding now present /store/[id number]/[id number].pdf
[2024-05-23 20:09] VITALS: BP 144/84; PULSE 102; RESP 18; TEMP 37.3; O2SAT 100
--- NOTE | 2024-05-23 20:17 | XR_ITS ---
Examination: PA lateral chest 2 views Technique: Upright PA lateral chest 2 views Exam date and time: May 23, 20242022 hrs. Indications: Onset chest pain today. Findings: Normal heart size Lungs are clear The osseous structures are intact Impression: No active disease
--- NOTE | 2024-05-23 20:17 | PD.EDRME ---
Rapid Medical Screening Exam RME Arrival date/time: 05/23/24 19:52 33-year-old female presents emergency department complaining of chest pain that started today. Chief Complaint: Chest Pain Time Seen by Provider: 05/23/24 20:12 Vital signs: Vital Signs Temperature 99.1 F 05/23/24 20:09 Pulse Rate 102 H 05/23/24 20:09 Respiratory Rate 18 05/23/24 20:09 Blood Pressure 144/84 H 05/23/24 20:09 Pulse Oximetry (%) 100 05/23/24 20:09 Oxygen Delivery Method Room Air 05/23/24 20:09 Vital signs reviewed by provider: Yes
[2024-05-23 20:43] LABS: Basophils % (Auto) 0 % (0-2.5); Eosinophils # (Auto) 0.3 Thou/mm3 (0.0-0.5); Eosinophils % (Auto) 3 % (0-10); Hematocrit 34.8 % (36.0-46.0); Hemoglobin 10.8 g/dL (12.0-16.0); Immature Granulocytes % (Auto) 0 % (0-0); Immature Granulocytes Auto 0.03 Thou/mm3 (0.00-0.00); Lymphocytes # (Auto) 1.7 Thou/mm3 (1.0-4.8); Lymphocytes % (Auto) 20 % (10-50); Mean Corpuscular Hemoglobin 26.2 pg (25.0-35.0); Mean Corpuscular Volume 84 fL (80-100); Monocytes # (Auto) 0.4 Thou/mm3 (0.0-0.8); Monocytes % (Auto) 5 % (0-12); Neutrophils # (Auto) 6.1 Thou/mm3 (1.8-7.7); Neutrophils % (Auto) 72 % (37-80); Nucleated Red Blood Cell % 0 /100 WBC (0); Platelet Count 367 Thou/mm3 (140-440); RDW Standard Deviation 49.6 fL (36.4-46.3); Red Blood Count 4.13 Miln/mm3 (4.00-5.20); White Blood Count 8.5 Thou/mm3 (3.6-11.0)
[2024-05-23 20:58] LABS: Collection Type, Urine Clean Catch
[2024-05-23 21:03] LABS: B-Type Natriuretic Peptide 39 pg/mL (0-100)
[2024-05-23 21:04] LABS: Alanine Aminotransferase 15 U/L (10-49); Albumin, Serum 4.3 gm/dL (3.5-5.0); Albumin/Globulin Ratio 1.4 (1.2-2.2); Alkaline Phosphatase 92 U/L (46-116); Anion Gap 6 (7-16); Aspartate Amino Transferase 19 U/L (0-34); BUN/Creatinine Ratio 14 Ratio (12-20); Bilirubin,Total 0.3 mg/dL (0.3-1.2); Blood Urea Nitrogen 11 mg/dL (9-23); Calcium 9.2 mg/dL (8.3-10.6); Calcium (Corrected) 9.2 mg/dL (8.5-10.1); Carbon Dioxide 26.4 mMol/L (20.0-31.0); Chloride 109 mMol/L (98-107); Creatinine (Component) 0.8 mg/dL (0.6-1.3); Estimated Creatinine Clearance 112.8 mL/min (>60); Globulin 3.1 gm/dL (2.3-3.5); Glucose 99 mg/dL (74-106); Magnesium 2.1 mg/dL (1.6-2.6); Osmolality,Calculated 280 (275-295); Potassium 3.8 mMol/L (3.4-5.1); Sodium 141 mMol/L (136-145); Total Protein 7.4 gm/dL (5.7-8.2); Troponin I < 0.002 ng/mL (0.0-0.045); eGFR > 60 See Note
[2024-05-23 21:06] LABS: INR 0.9 (0.9-1.3); Partial Thromboplastin Time 24.8 Seconds (22.0-36.0); Prothrombin Time 10.2 Seconds (9.0-12.2)
[2024-05-23 21:14] LABS: Amphetamine/Methamp Scrn,U Negative (Negative); Barbiturate Screen,Urine Negative (Negative); Benzodiazepines Screen,Urine Negative (Negative); Benzoylecgonine Screen, Ur Negative (Negative); Fentanyl Screen,Urine Negative (Negative); Opiate Screen,Urine Negative (Negative); THC Screen,Urine Negative (Negative)
[2024-05-23 21:16] LABS: HCG,Qualitative Serum Negative
[2024-05-23 21:19] LABS: Bilirubin,Urine Negative (Negative); Blood,Urine 3+ (Negative); Clarity,Urine Turbid (Clear/Hazy); Color,Urine Yellow (Lt Yel-Yel); Glucose, Urine Negative (Negative); Ketones,Urine Trace (Negative); Leukocyte Esterase,Urine Positive (Negative); Nitrite,Urine Negative (Negative); Protein,Urine Trace (Neg - Trace); RBC,Urine 295 /hpf (0-3); Specific Gravity,Urine 1.021 (1.001-1.035); Squamous Epithelial Cell,Urine 6 /hpf (0-5); Urobilinogen,Urine Negative mg/dL (0.0-1.0); WBC,Urine 10 /hpf (0-5)
--- NOTE | 2024-05-23 21:35 | EDNOTE_ITS ---
ED Chest Pain RME/HPI General Chief Complaint: Chest Pain Stated Complaint: CHEST PAIN, NAUSEA, DIZZY, FEVER Time Seen by Provider: 05/23/24 20:12 Source: patient Arrival date/time: 05/23/24 19:52 33-year-old female presents emergency department complaining of chest pain that started today. Patient reports is currently on oral antibiotics for urinary tract infection that is being managed by PHYSICAL TESTING SUPERVISOR Dr Meza. Patient denies any chills, fever, shortness of breath, cough, nausea vomiting, dysuria, flank pain, or any other associated symptom. Mode of arrival: ambulatory Limitations: no limitations RME / HPI RME / HPI narrative: 05/23/24 19:52 33-year-old female presents emergency department complaining of chest pain that started today. Related Data Home Medications ?Medication ?Instructions ?Recorded ?Confirmed semaglutide (weight loss) 1 mg/0.5 1 mg subcut QWEEK 04/19/24 05/08/24 mL subcutaneous pen injector (Wegovy) Allergies Allergy/AdvReac Type Severity Reaction Status Date / Time Sulfa (Sulfonamide Allergy Severe Hives Verified 05/08/24 13:18 Antibiotics) ancef Allergy Mild Hives Uncoded 04/26/24 12:52 Review of Systems Review of Systems Systems Reviewed: All systems reviewed, normal except as documented Constitutional Constitutional: Reports system reviewed and no additional complaints, except as documented, Denies body ache(s), Denies chills and Denies fever(s) Eyes Eyes: Reports system reviewed and no additional complaints, except as documented and Denies change in vision ENT Ears, Nose, Mouth, and Throat: Reports system reviewed and no additional complaints, except as documented, Denies disequilibrium, Denies dizziness, Denies sore throat and Denies vertigo Cardiovascular Cardiovascular: Reports system reviewed and no additional complaints, except as documented, Reports chest pain and Denies dyspnea Respiratory Respiratory: Reports system reviewed and no additional complaints, except as documented, Denies chest congestion, Denies cough and Denies dyspnea Gastrointestinal Gastrointestinal: Reports system reviewed and no additional complaints, except as documented, Denies abdominal pain, Denies nausea and Denies vomiting Musculoskeletal Musculoskeletal: Reports system reviewed and no additional complaints, except as documented, Denies abnormal gait and Denies arthralgias Integumentary/Breasts Skin/Breast: Reports system reviewed and no additional complaints, except as documented, Denies erythema, Denies rash and Denies wounds Neurologic Neurologic: Reports system reviewed and no additional complaints, except as documented, Denies abnormal gait, Denies disequilibrium, Denies dizziness and Denies vertigo Past Medical History Past Medical History NEUROLOGIC: Positive Neurological Disorders and Migraine; Negative Seizures CARDIAC: Negative Cardiac Disorders or Congestive Heart Failure RESPIRATORY: Negative Chronic Obstructive Pulmonary Disease (COPD) GASTROINTESTINAL: Positive Gastrointestinal Disorders and Obesity; Negative Hepatitis GENITOURINARY: Positive Genitourinary Disorders and Kidney Stones; Negative Renal Disease REPRODUCTIVE: Positive Previous Pregnancies MUSCULOSKELETAL: Negative Musculoskeletal Disorders ENDOCRINE: Negative Endocrine Disorders, Diabetes Mellitus Type 1 or Diabetes Mellitus Type 2 HEMATOLOGIC: Negative Blood Disorders or Anemia PSYCHO/SOCIAL: Positive Depression and Anxiety OTHER HISTORY: Positive Chicken Pox; Negative Hospitalization, Autoimmune Disease, Shingles, Falls, Blood Tra nsfusions, Blood Transfusion Reaction, Anesthesia Reactions, Chemotherapy, Radiation Therapy, MRSA or Cancer Family History FAMILY HISTORY: Positive Family Cardiac Disorders, Family Cancer and Family Surgery; Negative Family Psychiatric Problems, Family Respiratory Disorders, Family Gastrointestinal Problems or Family Anesthesia Reaction Surgical History SURGICAL: Positive Tubal Ligation and Section Social History SMOKING STATUS: Never smoker SECOND HAND EXPOSURE: No ED Exam General Limitations: Present no limitations General appearance: Present alert and in no apparent distress Head Head exam: Present atraumatic Eye Eye exam: Present normal appearance, PERRL and EOMI ENT ENT exam: Present normal exam, normal oropharynx and mucous membranes moist Neck Neck exam: Present normal inspection, full ROM and trachea midline Chest Chest inspection: Present normal inspection and symmetric chest wall rise Respiratory Respiratory exam: Present normal lung sounds bilaterally Cardiovascular Cardiovascular exam: Present regular rate, normal rhythm and normal heart sounds Abdominal Exam Abdominal exam: Present soft and normal bowel sounds Extremities Exam Extremities exam: Present normal inspection and full ROM Back Exam Back exam: Present normal inspection and full ROM Neurological Exam Neurological exam: Present alert, oriented X3 and CN II-XII intact Psychiatric Psychiatric exam: Present normal affect and normal mood Skin Skin exam: Present warm, dry, intact and normal color Course Quality Measures none Orders Category Date Time Status Bedside COVID-19 Antigen Test NOW Care 05/23/24 20:17 Completed Bedside Influenza A&B Antigen Test NOW Care 05/23/24 20:17 Completed EKG (ED ONLY) *Do not use* NOW Care 05/23/24 20:02 Completed EKG (ED Only) Stat Exams 05/23/24 20:02 Draft XR chest 2V Stat Exams 05/23/24 20:17 Completed B-Type Natriuretic Peptide Stat Lab 05/23/24 20:34 Completed CBC Stat Lab 05/23/24 20:34 Completed Comprehensive Metabolic Panel Stat Lab 05/23/24 20:34 Completed Drug Screen,Urine Stat Lab 05/23/24 20:53 Completed HCG,Qualitative Serum Stat Lab 05/23/24 20:34 Completed Magnesium Stat Lab 05/23/24 20:34 Completed Partial Thromboplastin Time Stat Lab 05/23/24 20:34 Completed Prothrombin Time with INR Stat Lab 05/23/24 20:34 Completed Troponin I Stat Lab 05/23/24 20:34 Completed Urinalysis Stat Lab 05/23/24 20:53 Completed Vital Signs Vital signs: Vital Signs Temperature 99.1 F 05/23/24 20:09 Pulse Rate 102 H 05/23/24 20:09 Respiratory Rate 18 05/23/24 20:09 Blood Pressure 144/84 H 05/23/24 20:09 Pulse Oximetry (%) 100 05/23/24 20:09 Oxygen Delivery Method Room Air 05/23/24 20:09 100% room air within normal limits Procedures -ED EKG Interpretation #1: Date of EK05/23/24 Time of EK:11 Rate: 82 Interpretation: Interpreted by me EKG Impression: Normal sinus rhythm, No acute ST-T changes, No ectopy, No ischemic changes and Normal QRS Chest Pain MDM Narrative MDM Narrative:: 33-year-old female presents emergency department complaining of chest pain that started today. Patient reports is currently on oral antibiotics for urinary tract infection that is being managed by PHYSICAL TESTING SUPERVISOR Dr Meza. Patient denies any chills, fever, shortness of breath, cough, nausea vomiting, dysuria, flank pain, or any other associated symptom. Patient appears nontoxic and is hemodynamically stable. No adventitious lung sounds on auscultation. Abdomen is soft and nontender. CBC was unremarkable for any leukocytosis. CMP was unremarkable for any elevated LFTs or gross electrolyte abnormalities. EKG was sinus rhythm and troponin was within normal limits. Urinalysis did show RBCs and patient currently on antibiotics for UTI and reports still has vaginal bleeding from previous LEEP procedure that is being managed by outpatient PHYSICAL TESTING SUPERVISOR Dr Meza. Chest x-ray was negative for any pneumonic infiltrates. Patient discharged and instructed to follow-up with primary care provider and PHYSICAL TESTING SUPERVISOR Dr Meza upon discharge and return to the emergency department for any worsening symptoms or as needed Patient data External records reviewed:: [facility] previous records Clinical information provided by:: patient Social determinants that could affect healthcare access:: none Patient has the following chronic illnesses:: See chart How is presenting disease/condition affected by chronic disease/condition?: uneffected by Evaluation data The following diagnostics were reviewed and interpreted by me:: lab results and radiology exam(s) Lab and/or radiology exams considered but not ordered:: Ordered Interpretation Summary: Interpreted by me Medications / Prescriptions Medications or Prescriptions considered but not ordered:: N/A Medication administrations:: N/A Consultations Consultation(s) initiated? (list below): No Diagnosis Chest Pain Differential Diagnosis: stable angina, unstable angina pectoris, atypical chest pain, st elevation myocardial infarction, costochondritis, chest pain and biliary colic Most likely diagnosis given after review of the tests above:: Noncardiac chest pain Admission Indicated Admission indicated?: not indicated Admission Request Was there a request for admission?: No Disposition Plan Disposition Plan: Discharge Discharge Attestation Discharge Attestation: The patient and all family members were given an opportunity to ask questions and understood the discharge instructions. Discharge instructions specifically effects, indications for sooner follow up or return to the emergency department, and the expected course of current diagnosis. Patient condition: Stable Discharge Plan Plan Patient Disposition: HOME (Self Care) Disposition Comment: Stable Prescriptions/Referrals Prescriptions/Med Rec: No Action Wegovy 1 mg/0.5 mL pen injector 1 mg SUBCUT QWEEK Patient Comments: INJECT 1 MG SUBCUTANEOUSLY EVERY WEEKL FOR 4 WEEKS Referrals: Candida Uribe PA-C [Primary Care Provider] - In 1 week Problem List Clinical Impression: Non-cardiac chest pain Patient/Caregiver Discharge Instructions Discharge Activity: activity as tolerated Education Materials: ED Chest Pain, Noncardiac Additional Instructions: Take Tylenol ibuprofen as needed for pain. Follow-up with primary care provider in 24 to 48 hours. Return to the emergency department for any worsening symptoms or as needed. Print Language: Wolof Stand Alone Forms: Linda Award Info., Patient Portal Info Letter JAGRUTI/LAM Supervising Physician PA/LAM Supervising Physician: Dr. Holguin
== END 2024-05-23 22:18 | disposition home or self-care (01) ==
PROVIDERS: Emergency Provider Emergency Medicine; PCP Physician Assistant
DX: R07.89 Other chest pain (principal); R94.31 Abnormal electrocardiogram [ECG] [EKG]
CPT/HCPCS: 36415; 71046; 80053; 80307; 81001; 83735; 83880; 84484; 84703; 85025; 85610; 85730; 87400; 87811; 93005; 99283

== ENCOUNTER 2024-06-27 12:49 | Emergency (ER) | payer MEDICAID, SELFPAY ==
[2024-06-27 13:14] VITALS: BP 123/82; PULSE 76; RESP 18; TEMP 36.4; O2SAT 100; BMI 34.3
--- NOTE | 2024-06-27 13:43 | XR_ITS ---
Examination: Lumbar spine 3 views Technique one AP lateral coned lateral lower lumbar spine 3 views Exam date and time: June 27, 2024 1512 hrs. Indications: Low back pain beginning several days ago. Findings: Suspicious for 3 mm calculus mid pole right kidney Adequate alignment lumbar vertebral bodies on the lateral view No lumbar fracture No significant lumbar disc narrowing No spondylolisthesis Minimal lumbar spondylosis Impression: Suspicious for 3 mm calculus mid pole right kidney, consider renal sonography follow-up No lumbar fracture No significant lumbar disc narrowing
--- NOTE | 2024-06-27 13:44 | PD.EDRME ---
Rapid Medical Screening Exam E Arrival date/time: 06/27/24 12:49 This is a 33-year-old female presents to the emergency department with complaints of right lower back flank pain. History of kidney stones. No reports of nausea vomiting or fever. I have greeted and performed a focused initial assessment of this patient. Initial appropriate labs ordered at this time. A comprehensive ED assessment and evaluation of the patient and analysis of all test and completion of medical decision making process will be conducted by additional ED provider. Chief Complaint: Abdominal Pain Time Seen by Provider: 06/27/24 13:17 Vital signs: Vital Signs Temperature 97.5 F 06/27/24 13:14 Pulse Rate 76 06/27/24 13:14 Respiratory Rate 18 06/27/24 13:14 Blood Pressure 123/82 06/27/24 13:14 Pulse Oximetry (%) 100 06/27/24 13:14 Oxygen Delivery Method Room Air 06/27/24 13:14
[2024-06-27 13:59] LABS: Basophils % (Auto) 0 % (0-2.5); Eosinophils # (Auto) 0.3 Thou/mm3 (0.0-0.5); Eosinophils % (Auto) 4 % (0-10); Hematocrit 34.2 % (36.0-46.0); Hemoglobin 10.5 g/dL (12.0-16.0); Immature Granulocytes % (Auto) 0 % (0-0); Immature Granulocytes Auto 0.02 Thou/mm3 (0.00-0.00); Lymphocytes # (Auto) 2.1 Thou/mm3 (1.0-4.8); Lymphocytes % (Auto) 29 % (10-50); Mean Corpuscular HGB Conc 30.7 g/dl (31.0-37.0); Mean Corpuscular Hemoglobin 24.9 pg (25.0-35.0); Mean Corpuscular Volume 81 fL (80-100); Monocytes # (Auto) 0.3 Thou/mm3 (0.0-0.8); Monocytes % (Auto) 4 % (0-12); Neutrophils # (Auto) 4.6 Thou/mm3 (1.8-7.7); Neutrophils % (Auto) 63 % (37-80); Nucleated Red Blood Cell % 0 /100 WBC (0); Platelet Count 287 Thou/mm3 (140-440); RDW Standard Deviation 42.9 fL (36.4-46.3); Red Blood Count 4.21 Miln/mm3 (4.00-5.20); White Blood Count 7.3 Thou/mm3 (3.6-11.0)
[2024-06-27 14:28] LABS: Alanine Aminotransferase 13 U/L (10-49); Albumin, Serum 4.5 gm/dL (3.5-5.0); Albumin/Globulin Ratio 1.7 (1.2-2.2); Alkaline Phosphatase 91 U/L (46-116); Anion Gap 7 (7-16); Aspartate Amino Transferase 14 U/L (0-34); BUN/Creatinine Ratio 14 Ratio (12-20); Bilirubin,Total 0.5 mg/dL (0.3-1.2); Blood Urea Nitrogen 10 mg/dL (9-23); Calcium 8.9 mg/dL (8.3-10.6); Calcium (Corrected) 8.9 mg/dL (8.5-10.1); Carbon Dioxide 26.8 mMol/L (20.0-31.0); Chloride 105 mMol/L (98-107); Creatinine (Component) 0.7 mg/dL (0.6-1.3); Estimated Creatinine Clearance 133.9 mL/min (>60); Globulin 2.7 gm/dL (2.3-3.5); Glucose 91 mg/dL (74-106); Lipase 44 U/L (12-53); Osmolality,Calculated 276 (275-295); Potassium 3.8 mMol/L (3.4-5.1); Sodium 139 mMol/L (136-145); Total Protein 7.2 gm/dL (5.7-8.2); eGFR > 60 See Note
[2024-06-27 14:46] LABS: Collection Type, Urine Clean Catch
[2024-06-27 15:04] LABS: HCG Qualitative,Urine Negative
[2024-06-27 15:14] LABS: Bilirubin,Urine Negative (Negative); Blood,Urine Negative (Negative); Clarity,Urine Clear (Clear/Hazy); Color,Urine Lt-Yellow (Lt Yel-Yel); Glucose, Urine Negative (Negative); Ketones,Urine Negative (Negative); Leukocyte Esterase,Urine Negative (Negative); Nitrite,Urine Negative (Negative); Protein,Urine Negative (Neg - Trace); RBC,Urine 1 /hpf (0-3); Specific Gravity,Urine 1.011 (1.001-1.035); Squamous Epithelial Cell,Urine 12 /hpf (0-5); Urobilinogen,Urine Negative mg/dL (0.0-1.0); WBC,Urine 6 /hpf (0-5)
--- NOTE | 2024-06-27 16:06 | EDNOTE_ITS ---
ED General RME/HPI General Chief complaint: Abdominal Pain Stated complaint: RIGHT FLANK PAIN TODAY, HX STONES Time Seen by Provider: 06/27/24 13:17 Arrival date/time: 06/27/24 12:49 CC: Right back/flank pain that radiates to the abdomen. HPI this episode onset last night. Waxes and wanes. No OTC medicines taken. The patient states I feel like this typically when I start to have a urinary tract infection or kidney stone . Patient is awake alert oriented nontoxic-appearing not in any acute distress speaking in full sentences without grimacing. Patient denies painful urination bloody urination RME / HPI RME / HPI narrative: 06/27/24 12:49 This is a 33-year-old female presents to the emergency department with complaints of right lower back flank pain. History of kidney stones. No reports of nausea vomiting or fever. I have greeted and performed a focused initial assessment of this patient. Initial appropriate labs ordered at this time. A comprehensive ED assessment and evaluation of the patient and analysis of all test and completion of medical decision making process will be conducted by additional ED provider. Related Data Home Medications ?Medication ?Instructions ?Recorded ?Confirmed semaglutide (weight loss) 1 mg/0.5 1 mg subcut QWEEK 04/19/24 05/08/24 mL subcutaneous pen injector ([employer]) Previous Rx's ?Medication ?Instructions ?Recorded ketorolac 10 mg tablet 10 mg PO Q8H PRN pain 1 day #10 06/27/24 tabs Allergies Allergy/AdvReac Type Severity Reaction Status Date / Time cefazolin [From [facility]] Allergy Severe Hives Verified 06/27/24 12:52 Sulfa (Sulfonamide Allergy Severe Hives Verified 06/27/24 12:52 Antibiotics) Review of Systems Review of Systems Narrative Review of Systems: GEN: No fever, no chills, no weight loss EYES: No discharge, no visual changes, no pain HEENT: No ear pain, no congestion, no sore throat PULM: No shortness of breath, no cough, no congestion CV: No chest pain, no dyspnea on exertion, no palpitations GI: No nausea, no vomiting, no diarrhea, + pain, no constipation : No frequency, no urgency, no dysuria MUSC/SKEL: No joint pain, no back pain SKIN: No rash PSYCH: No hallucinations, no depression HEME/LYMPH: No easy bleeding or bruising tendencies NEURO: No weakness, no headache Past Medical History Past Medical History NEUROLOGIC: Positive Neurological Disorders and Migraine; Negative Seizures CARDIAC: Negative Cardiac Disorders or Congestive Heart Failure RESPIRATORY: Negative Chronic Obstructive Pulmonary Disease (COPD) GASTROINTESTINAL: Positive Gastrointestinal Disorders and Obesity; Negative Hepatitis GENITOURINARY: Positive Genitourinary Disorders and Kidney Stones; Negative Renal Disease REPRODUCTIVE: Positive Previous Pregnancies MUSCULOSKELETAL: Negative Musculoskeletal Disorders ENDOCRINE: Negative Endocrine Disorders, Diabetes Mellitus Type 1 or Diabetes Mellitus Type 2 HEMATOLOGIC: Negative Blood Disorders or Anemia PSYCHO/SOCIAL: Positive Depression and Anxiety OTHER HISTORY: Positive Chicken Pox; Negative Hospitalization, Autoimmune Disease, Shingles, Falls, Blood Transfusions, Blood Transfusion Reaction, Anesthesia Reactions, Chemotherapy, Radiation Therapy, MRSA or Cancer Family History FAMILY HISTORY: Positive Family Cardiac Disorders, Family Cancer and Family Surgery; Negative Family Psychiatric Problems, Family Respiratory Disorders, Family Gastrointestinal Problems or Family Anesthesia Reaction Surgical History SURGICAL: Positive Tubal Ligation and Section Social History SMOKING STATUS: Never smoker SECOND HAND EXPOSURE: No ED Exam Narrative Physical exam: [General: Obese not in any acute distress Head normocephalic HEENT: Within acceptable limits Neck is supple nontender Chest equal chest rise nontender to palpation Respiratory: Clear to auscultation no wheezes crackles or rubs CV: Rate rhythm is regular no murmurs rubs or clicks Abdomen is distended secondary to body habitus soft nontender no masses positive bowel sounds all 4 quadrants Back: NO CVA tenderness bilaterally, no spinous process tenderness from cervical spine thoracic and lumbar spine Skin: Intact no petechiae rash induration ulceration or crepitus Extremities: Moving all extremity against resistance cap refill less than 2 seconds neurosensory intact Neuro: Awake alert oriented x3 Glascow coma 15 no focal deficits] Course Quality Measures none Orders Category Date Time Status XR lumbar spine 2-3V Stat Exams 06/27/24 13:43 Taken CBC Stat Lab 06/27/24 13:50 Completed Comprehensive Metabolic Panel Stat Lab 06/27/24 13:50 Completed HCG Qualitative,Urine Stat Lab 06/27/24 14:20 Completed Lipase Stat Lab 06/27/24 13:50 Completed Urinalysis Stat Lab 06/27/24 14:20 Completed Ketorolac Inj [Toradol Inj] Med 06/27/24 16:05 Discontinued 15 mg IM X1 ONE Vital Signs Vital signs: Vital Signs Temperature 97.5 F 06/27/24 13:14 Pulse Rate 76 06/27/24 13:14 Respiratory Rate 18 06/27/24 13:14 Blood Pressure 123/82 06/27/24 13:14 Pulse Oximetry (%) 100 06/27/24 13:14 Oxygen Delivery Method Room Air 06/27/24 13:14 [facility] Patient data External records reviewed:: [facility] previous records Clinical information provided by:: patient Social determinants that could affect healthcare access:: none Patient has the following chronic illnesses:: Obesity How is presenting disease/condition affected by chronic disease/condition?: u neffected by Evaluation data The following diagnostics were reviewed and interpreted by me:: lab results and radiology exam(s) Lab and/or radiology exams considered but not ordered:: CBC shows no acute leukocytosis anemia thrombocytopenia CMP shows no acute electrolyte imbalances renal impairment transaminitis or T. bili elevation Urine is negative for urinary tract infection. Interpretation Summary: Review the medical record show the patient had a CT in April 2024 for with admission. Review of the laboratory results with the patient has no acute finding no leukocytosis or urinary tract infection the pain that she describes is not reproducible in the flank which would make it highly suspicious for urolithiasis or hydroureter. Advised the patient that she had a scan in April 2024 and repeat scan for her clinical presentation and laboratory findings would not be justified for the amount of radiation she would receive. Patient is also Wegovy which can also cause abdominal pain. patient is in agreement with the discharge plan.. Patient just wants pain relief at this point in time but nothing strong , patient injected with Toradol and will be discharged home. Medications Medications considered but not ordered:: None Medication administrations:: Medication Administration History Discontinued Medications Ketorolac Tromethamine (Ketorolac Inj 60 Mg/2 Ml Vial) 15 mg IM X1 ONE Stop: 06/27/24 16:06 None Consultations Consultation(s) initiated? (list below): No Diagnosis Differential Diagnosis ED Complaint MDM: Pyelonephritis urolithiasis hydroureter Most likely diagnosis given after review of the tests above:: Right flank pain Admission Indicated Admission indicated?: not indicated Explain why admission is indicated or not indicated:: Stable for discharge Admission Request Was there a request for admission?: No Disposition Plan Disposition Plan: Discharge Discharge Attestation Discharge Attestation: The patient and all family members were given an opportunity to ask questions and understood the discharge instructions. Discharge instructions specifically effects, indications for sooner follow up or return to the emergency department, and the expected course of current diagnosis. Patient condition: Stable Medical Decision Making Differential Diagnosis Differential Diagnosis: Pyelonephritis urolithiasis hydroureter Lab Data 06/27/24 13:50 06/27/24 13:50 Labs: Lab Results 06/27/24 06/27/24 Range/Units 13:50 14:20 WBC 7.3 (3.6-11.0) Thou/mm3 RBC 4.21 (4.00-5.20) Miln/mm3 Hgb 10.5 L (12.0-16.0) g/dL Hct 34.2 L (36.0-46.0) % MCV 81 (80-100) fL MCH 24.9 L (25.0-35.0) pg MCHC 30.7 L (31.0-37.0) g/dl RDW Std Deviation 42.9 (36.4-46.3) fL Plt Count 287 D (140-440) Thou/mm3 Neut % (Auto) 63 (37-80) % Lymph % (Auto) 29 (10-50) % [place] % (Auto) 4 (0-12) % Eos % (Auto) 4 (0-10) % Baso % (Auto) 0 (0-2.5) % Neut # (Auto) 4.6 (1.8-7.7) Thou/mm3 Lymph # (Auto) 2.1 (1.0-4.8) Thou/mm3 [place] # (Auto) 0.3 (0.0-0.8) Thou/mm3 Eos # (Auto) 0.3 (0.0-0.5) Thou/mm3 Baso # (Auto) 0.0 (0.0-0.2) Thou/mm3 Immature Gran # (Auto) 0.02 H (0.00-0.00) Thou/mm3 Absolute Nucleated RBC 0.00 (0.00-0.00) Thou/mm3 Immature Gran % 0 (0-0) % Nucleated RBC % 0 (0) /100 WBC Sodium 139 (136-145) mMol/L Potassium 3.8 (3.4-5.1) mMol/L Chloride 105 (98-107) mMol/L Carbon Dioxide 26.8 (20.0-31.0) mMol/L Anion Gap 7 (7-16) BUN 10 (9-23) mg/dL Creatinine 0.7 (0.6-1.3) mg/dL Estim Creat Clear Calc 133.9 (>60) mL/min eGFR > 60 (60 - ) See Note BUN/Creatinine Ratio 14 (12-20) Ratio Glucose 91 (74-106) mg/dL Calculated Osmolality 276 (275-295) Calcium 8.9 (8.3-10.6) mg/dL Corrected Calcium 8.9 (8.5-10.1) mg/dL Total Bilirubin 0.5 (0.3-1.2) mg/dL AST 14 (0-34) U/L ALT 13 (10-49) U/L Alkaline Phosphatase 91 (46-116) U/L Total Protein 7.2 (5.7-8.2) gm/dL Albumin 4.5 (3.5-5.0) gm/dL Globulin 2.7 (2.3-3.5) gm/dL Albumin/Globulin Ratio 1.7 (1.2-2.2) Lipase 44 (12-53) U/L Ur Collection Type Clean Catch Urine Color Lt-Yellow (Lt Yel-Yel) Urine Clarity Clear (Clear/Hazy) Urine pH 6.0 (5.0-7.0) Ur Specific [place] 1.011 (1.001-1.035) Urine Protein Negative (Neg - Trace) Urine Glucose (UA) Negative (Negative) Urine Ketones Negative (Negative) Urine Blood Negative (Negative) Urine Nitrite Negative (Negative) Urine Bilirubin Negative (Negative) Urine Urobilinogen (Auto) Negative (0.0-1.0) mg/dL Ur Leukocyte Esterase Negative (Negative) Urine RBC 1 (0-3) /hpf Urine WBC 6 H (0-5) /hpf Ur Squamous Epith Cells 12 H (0-5) /hpf Urine Bacteria None (None) Urine HCG, Qual Negative Discharge Plan Plan Patient Disposition: HOME (Self Care) Patient condition on transfer: Stable Prescriptions/Referrals Prescriptions/Med Rec: New ketorolac 10 mg tablet 10 mg PO Q8H PRN (Reason: pain) 1 Days Qty: 10 0RF No Action Wegovy 1 mg/0.5 mL pen injector 1 mg SUBCUT QWEEK Patient Comments: INJECT 1 MG SUBCUTANEOUSLY EVERY WEEKL FOR 4 WEEKS Referrals: Candida Uribe PA-C [Primary Care Provider] - In 1 week Problem List Clinical Impression: Low back pain, Non-surgical abdominal pain Patient/Caregiver Discharge Instructions Education Materials: Abdominal Pain, ED Back Pain (Acute or Chronic) Print Language: Slovenian Stand Alone Forms: Linda Award Info., Patient Portal Info Letter, Work/School Release PA/LAM Supervising Physician PA/LAM Supervising Physician: Chester Phan ENP
[2024-06-27 16:08] VITALS: BP 131/89; PULSE 76; RESP 16; TEMP 36.7; O2SAT 99
[2024-06-27] MEDS: KETOROLAC INJ 60 MG/2 ML VIAL 15 MG IM (16:13)
== END 2024-06-27 16:42 | disposition home or self-care (01) ==
PROVIDERS: Nurse Practitioner Primary Care; Emergency Provider Emergency Medicine; PCP Physician Assistant
DX: M54.50 Low back pain, unspecified (principal); R10.9 Unspecified abdominal pain
CPT/HCPCS: 36415; 72100; 80053; 81001; 81025; 83690; 85025; 96372; 99283; J1885

== ENCOUNTER 2024-10-30 19:05 | Emergency (ER) | payer MEDICAID, SELFPAY ==
[2024-10-30 19:06] VITALS: BMI 36.8
[2024-10-30 19:31] VITALS: BP 131/66; PULSE 78; RESP 18; TEMP 36.8; O2SAT 99
--- NOTE | 2024-10-30 19:41 | XR_ITS ---
Examination: CT abdomen and pelvis without contrast. Coronal 3-D reconstructions. Sagittal 2-D reconstructions. Date and time of exam:October 302028 hours Comparison May 08, 2024 INDICATIONS: Onset right-sided flank pain today CTDI: vol (mGy): 12.1 DLP: (mGycm): 7 1 Technique: Axial images of the abdomen have been obtained, 3 mm slice thickness Intravenous contrast material has not been administered. Low dose protocols were performed. One or more of the following dose reduction techniques were used; automated exposure control, adjustment of the mA and/or KV according to patient size, use of iterative reconstruction technique. Findings: No focal liver or splenic lesion No gallstones No pancreatic mass Bilateral 1 to 4 mm renal calculi No hydronephrosis or ureteral calculi Aorta normal size Normal appendix Retroverted uterus No bladder mass or bladder calculi Osseous structures intact IMPRESSION: Bilateral nonobstructing renal calculi No hydronephrosis or ureteral calculi Normal appendix No bladder mass or bladder calculi
--- NOTE | 2024-10-30 19:41 | PD.EDRME ---
Rapid Medical Screening Exam RME Arrival date/time: 10/30/24 19:05 Chief Complaint: Urogenital-Female Time Seen by Provider: 10/30/24 19:07 Vital signs: Vital Signs Temperature 98.3 F 10/30/24 19:31 Pulse Rate 78 10/30/24 19:31 Respiratory Rate 18 10/30/24 19:31 Blood Pressure 131/66 H 10/30/24 19:31 Pulse Oximetry (%) 99 10/30/24 19:31 Oxygen Delivery Method Room Air 10/30/24 19:31 RME Narrative: Right flank pain for the past few days. History of kidney stones and UTIs. Denies fever, vomiting
[2024-10-30 19:58] LABS: Basophils % (Auto) 0 % (0-2.5); Eosinophils # (Auto) 0.3 Thou/mm3 (0.0-0.5); Eosinophils % (Auto) 3 % (0-10); Hematocrit 34.2 % (36.0-46.0); Hemoglobin 10.7 g/dL (12.0-16.0); Immature Granulocytes % (Auto) 0 % (0-0); Immature Granulocytes Auto 0.01 Thou/mm3 (0.00-0.00); Lymphocytes # (Auto) 2.7 Thou/mm3 (1.0-4.8); Lymphocytes % (Auto) 33 % (10-50); Mean Corpuscular HGB Conc 31.3 g/dl (31.0-37.0); Mean Corpuscular Hemoglobin 24.2 pg (25.0-35.0); Mean Corpuscular Volume 77 fL (80-100); Monocytes # (Auto) 0.5 Thou/mm3 (0.0-0.8); Monocytes % (Auto) 7 % (0-12); Neutrophils # (Auto) 4.6 Thou/mm3 (1.8-7.7); Neutrophils % (Auto) 56 % (37-80); Nucleated Red Blood Cell % 0 /100 WBC (0); Platelet Count 272 Thou/mm3 (140-440); RDW Standard Deviation 46.3 fL (36.4-46.3); Red Blood Count 4.42 Miln/mm3 (4.00-5.20); White Blood Count 8.2 Thou/mm3 (3.6-11.0)
[2024-10-30 20:09] LABS: Collection Type, Urine Clean Catch
[2024-10-30 20:13] LABS: Bilirubin,Urine Negative (Negative); Blood,Urine Negative (Negative); Clarity,Urine Clear (Clear/Hazy); Color,Urine Colorless (Lt Yel-Yel); Glucose, Urine Negative (Negative); Ketones,Urine Negative (Negative); Leukocyte Esterase,Urine Negative (Negative); Nitrite,Urine Negative (Negative); Protein,Urine Negative (Neg - Trace); RBC,Urine 1 /hpf (0-3); Specific Gravity,Urine 1.012 (1.001-1.035); Squamous Epithelial Cell,Urine 3 /hpf (0-5); Urobilinogen,Urine Negative mg/dL (0.0-1.0); WBC,Urine 3 /hpf (0-5)
[2024-10-30 20:19] LABS: HCG Qualitative,Urine Negative
[2024-10-30 20:21] LABS: Alanine Aminotransferase 12 U/L (10-49); Albumin, Serum 4.4 gm/dL (3.5-5.0); Albumin/Globulin Ratio 1.8 (1.2-2.2); Alkaline Phosphatase 77 U/L (46-116); Anion Gap 6 (7-16); Aspartate Amino Transferase 16 U/L (0-34); BUN/Creatinine Ratio 12 Ratio (12-20); Bilirubin,Total 0.3 mg/dL (0.3-1.2); Blood Urea Nitrogen 11 mg/dL (9-23); Calcium 9.2 mg/dL (8.3-10.6); Calcium (Corrected) 9.2 mg/dL (8.5-10.1); Carbon Dioxide 27.1 mMol/L (20.0-31.0); Chloride 106 mMol/L (98-107); Creatinine (Component) 0.9 mg/dL (0.6-1.3); Estimated Creatinine Clearance 100.8 mL/min (>60); Globulin 2.5 gm/dL (2.3-3.5); Glucose 87 mg/dL (74-106); Lipase 48 U/L (12-53); Osmolality,Calculated 275 (275-295); Potassium 3.7 mMol/L (3.4-5.1); Sodium 139 mMol/L (136-145); Total Protein 6.9 gm/dL (5.7-8.2); eGFR > 60 See Note
[2024-10-30] MEDS: IBUPROFEN TAB 400 MG TABLET 800 MG PO (21:15)
--- NOTE | 2024-10-30 22:34 | PD.EDFMALE ---
ED Female Urogenital RME/HPI General Chief complaint: Urogenital-Female Stated complaint: RT FLANK PAIN Time Seen by Provider: 10/30/24 19:07 Arrival date/time: 10/30/24 19:05 RME / HPI RME / HPI Narrative: 33-year-old female patient came in for evaluation regarding bilateral flank pain. Onset of symptoms for the last few days as on and off bilateral flank pain, radiating to the front. Patient is worried because he had a history of kidney stones and frequent UTIs. Patient denies any vomiting denies any fever denies any other complaints no medications taken prior to arrival. Related Data Home Medications ?Medication ?Instructions ?Recorded ?Confirmed semaglutide (weight loss) 1 mg/0.5 1 mg subcut QWEEK 04/19/24 05/08/24 mL subcutaneous pen injector ([employer]) Previous Rx's ?Medication ?Instructions ?Recorded meloxicam 7.5 mg tablet 7.5 mg PO QDAY #10 tabs 06/27/24 ibuprofen 800 mg tablet 800 mg PO TID PRN pain #30 tabs 10/30/24 Allergies Allergy/AdvReac Type Severity Reaction Status Date / Time cefazolin (From [facility]) Allergy Severe Hives Verified 06/27/24 12:52 Sulfa (Sulfonamide Allergy Severe Hives Verified 06/27/24 12:52 Antibiotics) Review of Systems Review of Systems Narrative Review of Systems: Review of system reviewed and within normal limits except mentioned in HPI ED Exam Narrative Physical exam: VITAL SIGNS: Reviewed. GENERAL APPEARANCE: Alert and interactive, follows commands, no acute distress, HEAD AND FACE: Non-traumatic. ENT: PERRL, pink conjunctivitis, eyelid no trauma, Mucous membrane moist. NECK: Supple, nontender, no nuchal rigidity. CHEST: No tenderness, no crepitus, no paradoxical movement, no retractions. LUNGS: Clear, well ventilated, symmetric, no rales, no wheezing, no ronchi, no stridor, good breath sounds bilaterally. HEART: Regular rate, regular rhythm, no murmur, no gallops. ABDOMEN: Soft, positive bowel sounds, nondistended, no guarding, nontender, no rebound, no masses, RECTAL: Deferred. GENITAL: Deferred. NEUROLOGICAL: Gross motor function intact sensory function intact, Appropriate for age. MUSCULOSKELETAL: low back nontender, full range of motion. EXTREMITIES: Nontender, full range of motion. SKIN: Color pink, dry, no rash, no lacerations, no abrasions, no contusions. LYMPHATICS: Deferred. Course Quality Measures none Orders Category Date Time Status CT abdomen pelvis wo con Stat Exams 10/30/24 19:41 Completed CBC Stat Lab 10/30/24 19:51 Completed CMP [Comprehensive Metabolic Panel] Stat Lab 10/30/24 19:51 Completed HCG Qualitative,Urine Stat Lab 10/30/24 20:00 Completed Lipase Stat Lab 10/30/24 19:51 Completed UA [Urinalysis] Stat Lab 10/30/24 20:00 Completed Urine Culture Stat Lab 10/30/24 20:00 Received Ibuprofen Tab [Motrin Tab] Med 10/30/24 20:59 Discontinued 800 mg PO X1 ONE Vital Signs Vital signs: Vital Signs Temperature 98.3 F 10/30/24 19:31 Pulse Rate 78 10/30/24 19:31 Respiratory Rate 18 10/30/24 19:31 Blood Pressure 131/66 H 10/30/24 19:31 Pulse Oximetry (%) 99 10/30/24 19:31 Oxygen Delivery Method Room Air 10/30/24 19:31 Urogenital - Female [facility] Narrative MDM Narrative:: 33-year-old female patient came in for evaluation regarding bilateral flank pain. Onset of symptoms for the last few days as on and off bilateral flank pain, radiating to the front. Patient is worried because he had a history of kidney stones and frequent UTIs. Patient denies any vomiting denies any fever denies any other complaints no medications taken prior to arrival. Patient's workup all came back unremarkable including normal urinalysis. CT scan of the abdomen pelvis showed Bilateral nonobstructing renal calculi No hydronephrosis or ureteral calculi Normal appendix No bladder mass or bladder calculi Prior to discharge patient flank pain is totally gone after Motrin was given Patient data External records reviewed:: None Clinical information provided by:: patient Social determinants that could affect healthcare access:: none Patient has the following chronic illnesses:: None How is presenting disease/condition affected by chronic disease/condition?: no chronic disease Evaluation data The following diagnostics were reviewed and interpreted by me:: lab results and radiology exam(s) Lab and/or radiology exams considered but not ordered:: None Interpretation Summary: See results MDM Medications / Prescriptions Medications or Prescriptions considered but not ordered:: None Medication administrations:: Medication Administration History Discontinued Medications Ibuprofen (Ibuprofen Tab 400 Mg Tablet) 800 mg PO X1 ONE Stop: 10/30/24 21:00 Last Admin: 10/30/24 21:15 Dose: 800 mg Documented By: Faraz Consultations Consultation(s) initiated? (list below): No Diagnosis Urogenital Female Differential Diagnosis: urinary tract infection and other (Flank pain, nephrolithiasis) Most likely diagnosis given after review of the tests above:: Flank pain, nephrolithiasis Admission Indicated Admission indicated?: not indicated Explain why admission is indicated or not indicated:: Stable Admission Request Was there a request for admission?: No Disposition Plan Disposition Plan: Discharge Discharge Attestation Discharge Attestation: The patient was given an opportunity to ask questions and understood the discharge instructions. Discharge instructions specifically effects, indications for sooner follow up or return to the emergency department, and the expected course of current diagnosis. Patient condition: Stable Discharge Plan Plan Patient Disposition: HOME (Self Care) Discharge Disposition comment: Stable Prescriptions/Referrals Prescriptions/Med Rec: New ibuprofen 800 mg tablet 800 mg PO TID PRN (Reason: pain) Qty: 30 0RF No Action meloxicam 7.5 mg tablet 7.5 mg PO QDAY Qty: 10 0RF Wegovy 1 mg/0.5 mL pen injector 1 mg SUBCUT QWEEK Patient Comments: INJECT 1 MG SUBCUTANEOUSLY EVERY WEEKL FOR 4 WEEKS Referrals: Candida Uribe PA-C [Primary Care Provider] - In 1 week Problem List Clinical Impression: Bilateral nephrolithiasis, Flank pain Patient/Caregiver Discharge Instructions Discharge Activity: activity as tolerated Education Materials: Understanding Kidney Stones Additional Instructions: Thank you for the opportunity for serving you today. You are stable for discharged . You are advised to: Follow-up with your PCP in 1 to 2 days Return to ED for worsening of symptoms Increase oral fluids Take medication as prescribed Your PCP to refer you to a urologist Print Language: Hebrew Stand Alone Forms: Linda Award Info., Patient Portal Info Letter
[2024-10-30 22:47] VITALS: RESP 18
== END 2024-10-30 22:47 | disposition home or self-care (01) ==
PROVIDERS: Physician Assistant; Emergency Provider Emergency Medicine; PCP Physician Assistant
DX: N20.0 Calculus of kidney (principal)
CPT/HCPCS: 36415; 74176; 80053; 81001; 81025; 83690; 85025; 87086; 99284; A9270

== ENCOUNTER 2024-12-06 18:41 | Emergency (ER) | payer MEDICAID, SELFPAY ==
[2024-12-06 18:42] VITALS: BMI 35.9
[2024-12-06 18:58] VITALS: BP 147/96; PULSE 83; RESP 18; TEMP 37; O2SAT 99
--- NOTE | 2024-12-06 19:20 | EDNOTE_ITS ---
ED General RME/HPI General Chief complaint: General Adult/Misc Complain Stated complaint: WANTS COVID/FLU TEST FOR WORK CLEARANCE Time Seen by Provider: 12/06/24 19:08 Arrival date/time: 12/06/24 18:41 RME / HPI RME / HPI narrative: 34-year-old female presents to the ED with a complaint of cough, runny nose, nasal congestion, headache, hot and cold flashes, chills and bodyaches. She has positive exposure at home with her twins who are diagnosed with both COVID and influenza last week. 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 Related Data Home Medications ?Medication ?Instructions ?Recorded ?Confirmed semaglutide (weight loss) 1 mg/0.5 1 mg subcut QWEEK 1 06/19/23 05/08/24 mL subcutaneous pen injector (Wegovy) Previous Rx's ?Medication ?Instructions ?Recorded meloxicam 7.5 mg tablet 7.5 mg PO QDAY #10 tabs 06/16 08/10 ibuprofen 800 mg tablet 800 mg PO TID PRN pain #30 t abs 10/30/24 Allergies Allergy/AdvReac Type Severity Reaction Status Date / Time cefazolin (From [facility]) Allergy Severe Hives Verified 12/06/24 18:44 Sulfa (Sulfonamide Allergy Severe Hives Verified 12/06/24 18:44 Antibiotics) Review of Systems Review of Systems Systems Reviewed: All systems reviewed, normal except as documented Past Medical History Past Medical History NEUROLOGIC: Positive Neurological Disorders and Migraine; Negative Seizures CARDIAC: Negative Cardiac Disorders or Congestive Heart Failure RESPIRATORY: Negative Chronic Obstructive Pulmonary Disease (COPD) GASTROINTESTINAL: Positive Gastrointestinal Disorders and Obesity; Negative Hepatitis GENITOURINARY: Positive Genitourinary Disorders and Kidney Stones; Negative Renal Disease REPRODUCTIVE: Positive Previous Pregnancies MUSCULOSKELETAL: Negative Musculoskeletal Disorders ENDOCRINE: Negative Endocrine Disorders, Diabetes Mellitus Type 1 or Diabetes Mellitus Type 2 HEMATOLOGIC: Negative Blood Disorders or Anemia PSYCHO/SOCIAL: Positive Depression and Anxiety OTHER HISTORY: Positive Chicken Pox; Negative Hospitalization, Autoimmune Disease, Shingles, Falls, Blood Transfusions, Blood Transfusion Reaction, Anesthesia Reactions, Chemotherapy, Radiation Therapy, MRSA or Cancer Family History FAMILY HISTORY: Positive Family Cardiac Disorders, Family Cancer and Family Surgery; Negative Family Psychiatric Problems, Family Respiratory Disorders, Family Gastrointestinal Problems or Family Anesthesia Reaction Surgical History SURGICAL: Positive Tubal Ligation and Section Social History SMOKING STATUS: Never smoker SECOND HAND EXPOSURE: No ED Exam Narrative Physical exam: Alert and oriented 34-year-old female, no acute distress. Vital signs blood pressure 147/96, pulse 83, respirations 18 nonlabored, temperature of 98.6, O2 sat 99% on room air. Lungs are clear, regular rate and rhythm without murmurs, TMs and pharynx are without erythema. Nares are pale and boggy. Course Course Course Narrative: COVID and influenza swabs obtained and are all negative. Quality Measures none Orders Category Date Time Status Bedside Influenza A&B Antigen Test NOW Care 12/06/24 19:18 Completed COVID-19 Antigen (In-House) Stat Lab 12/06/24 19:31 Completed Vital Signs Vital signs: Vital Signs Temperature 98.6 F 12/06/24 18:58 Pulse Rate 83 12/06/24 18:58 Respiratory Rate 18 12/06/24 18:58 Blood Pressure 147/96 H 12/06/24 18:58 Pulse Oximetry (%) 99 12/06/24 18:58 Oxygen Delivery Method Room Air 12/06/24 18:58 Discharge Plan Plan Patient Disposition: HOME (Self Care) Discharge Disposition comment: Stable Prescriptions/Referrals Prescriptions/Med Rec: No Action meloxicam 7.5 mg tablet 7.5 mg PO QDAY Qty: 10 0RF ibuprofen 800 mg tablet 800 mg PO TID PRN (Reason: pain) Qty: 30 0RF Wegovy 1 mg/0.5 mL pen injector 1 mg SUBCUT QWEEK Patient Comments: INJECT 1 MG SUBCUTANEOUSLY EVERY WEEKL FOR 4 WEEKS Referrals: Candida Uribe PA-C [Primary Care Provider] - In 1 week Problem List Clinical Impression: Viral infection Patient/Caregiver Discharge Instructions Education Materials: ED Viral Syndrome (Adult) Additional Instructions: Your COVID and influenza swabs are all negative. Print Language: Wolof Stand Alone Forms: [employer] Award Info., Work/School Release, Patient Portal Info Letter PA/SPANISH MEDICAL INTERPRETER Supervising Physician PA/SPANISH MEDICAL INTERPRETER Supervising Physician: Dr Yesika CLEARY Narrative [facility] hospital course: 34-year-old female presents to the ED with a complaint of cough, runny nose, nasal congestion, headache, hot and cold flashes, chills and bodyaches. She has positive exposure at home with her twins who are diagnosed with both COVID and influenza last week. 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 Alert and oriented 34-year-old female, no acute distress. Vital signs blood pressure 147/96, pulse 83, respirations 18 nonlabored, temperature of 98.6, O2 sat 99% on room air. Lungs are clear, regular rate and rhythm without murmurs, TMs and pharynx are without erythema. Nares are pale and boggy. COVID and influenza swabs obtained and are all negative. Procedures done or offered: COVID and influenza swabs obtained and are all negative. Clinical Information Provided by patient Medical Records Reviewed None Meds/Rx Considered, not Ordered None Labs/Rad/Tests considered, not Ordered None Describe details: COVID and influenza A/B swabs obtained and are all negative. Chronic Illness/Social Conditions which may negatively complicate care or outcome(s)-explain: None or not applicable EKG EKG not done Lab Interpretation Labs: interpreted by fl Lab(s) interpretation(s): COVID swab negative. Influenza A/B swabs both negative. Imaging Imaging interpretation: none Provider imaging interpretation(s): N/A Radiology reports / interpretation(s): N/A Medication Administration(s) none N/A Diagnosis Differential diagnosis: COVID, influenza, viral URI Differential dx and/or dx ruled out: COVID, influenza Most likely dx, and/or detailed dx discussion: Viral URI
[2024-12-06 19:53] LABS: COVID-19 Antigen (In-House) Negative (Negative)
== END 2024-12-06 20:40 | disposition home or self-care (01) ==
PROVIDERS: Physician Assistant; Emergency Provider Emergency Medicine; PCP Physician Assistant
DX: B34.9 Viral infection, unspecified (principal)
CPT/HCPCS: 87400; 87811; 99283

== ENCOUNTER 2025-02-17 13:00 | Emergency (ER) | payer MEDICAID, SELFPAY ==
[2025-02-17 13:01] VITALS: BMI 36.3
[2025-02-17 13:10] VITALS: BP 135/82; PULSE 90; RESP 18; O2SAT 98
--- NOTE | 2025-02-17 13:36 | XR_ITS ---
Examination: CT abdomen and pelvis without contrast. Coronal 3-D reconstructions. Sagittal 2-D reconstructions. Date and time of exam:February 17, 2025, 1355 hours, comparison October 30, 2024 INDICATIONS: Bilateral flank pain today, history urinary tract infections CTDI: vol (mGy): 11.7 DLP: (mGycm): 727 Technique: Axial images of the abdomen have been obtained, 3 mm slice thickness Intravenous contrast material has not been administered. Low dose protocols were performed. One or more of the following dose reduction techniques were used; automated exposure control, adjustment of the mA and/or KV according to patient size, use of iterative reconstruction technique. Findings: No focal liver or splenic lesions No gallstones 9 mm benign-appearing fat-containing mass in the body the pancreas Bilateral 1 to 3 mm renal calculi No hydronephrosis or ureteral calculi Normal appendix. No bowel obstruction Retroverted uterus No bladder mass or bladder calculi IMPRESSION: Numerous bilateral nonobstructing renal calculi
[2025-02-17 14:28] LABS: Collection Type, Urine Clean Catch
[2025-02-17 14:29] LABS: Lactate (Lactic Acid) 0.7 mMol/L (0.4-2.0)
[2025-02-17 14:31] LABS: Basophils # (Auto) 0.0 Thou/mm3 (0.0-0.2); Basophils % (Auto) 0 % (0-2.5); Eosinophils # (Auto) 0.2 Thou/mm3 (0.0-0.5); Eosinophils % (Auto) 4 % (0-10); Hematocrit 37.3 % (36.0-46.0); Hemoglobin 11.4 g/dL (12.0-16.0); Immature Granulocytes Auto 0.01 Thou/mm3 (0.00-0.00); Lymphocytes # (Auto) 1.9 Thou/mm3 (1.0-4.8); Lymphocytes % (Auto) 31 % (10-50); Mean Corpuscular HGB Conc 30.6 g/dl (31.0-37.0); Mean Corpuscular Hemoglobin 25.4 pg (25.0-35.0); Mean Corpuscular Volume 83 fL (80-100); Monocytes # (Auto) 0.3 Thou/mm3 (0.0-0.8); Monocytes % (Auto) 5 % (0-12); Neutrophils # (Auto) 3.7 Thou/mm3 (1.8-7.7); Neutrophils % (Auto) 59 % (37-80); Nucleated Red Blood Cell # 0.00 Thou/mm3 (0.00-0.00); Nucleated Red Blood Cell % 0 /100 WBC (0); Platelet Count 272 Thou/mm3 (140-440); RDW Standard Deviation 46.9 fL (36.4-46.3); Red Blood Count 4.48 Miln/mm3 (4.00-5.20); White Blood Count 6.2 Thou/mm3 (3.6-11.0)
[2025-02-17 14:43] LABS: Bacteria,Urine Rare; Bilirubin,Urine Negative (Negative); Blood,Urine Negative (Negative); Clarity,Urine Clear (Clear/Hazy); Color,Urine Lt-Yellow (Lt Yel-Yel); Culture Indicated,Urine Not Indicated; Glucose, Urine Negative (Negative); Ketones,Urine Negative (Negative); Leukocyte Esterase,Urine Negative (Negative); Nitrite,Urine Negative (Negative); PH,Urine 7.0 (5.0-7.0); Protein,Urine Negative (Neg - Trace); RBC,Urine 5 /hpf (0-3); Specific Gravity,Urine 1.018 (1.001-1.035); Squamous Epithelial Cell,Urine 4 /hpf (0-5); Urobilinogen,Urine Negative mg/dL (0.0-1.0); WBC,Urine 3 /hpf (0-5)
[2025-02-17 14:58] LABS: Alanine Aminotransferase 9 U/L (10-49); Albumin, Serum 4.3 gm/dL (3.5-5.0); Albumin/Globulin Ratio 1.7 (1.2-2.2); Alkaline Phosphatase 76 U/L (46-116); Anion Gap 9 (7-16); Aspartate Amino Transferase 12 U/L (0-34); BUN/Creatinine Ratio 9 Ratio (12-20); Bilirubin,Total 0.5 mg/dL (0.3-1.2); Blood Urea Nitrogen 7 mg/dL (9-23); Calcium 9.5 mg/dL (8.3-10.6); Calcium (Corrected) 9.5 mg/dL (8.5-10.1); Carbon Dioxide 24.1 mMol/L (20.0-31.0); Chloride 108 mMol/L (98-107); Creatinine (Component) 0.8 mg/dL (0.6-1.3); Estimated Creatinine Clearance 111.5 mL/min (>60); Globulin 2.5 gm/dL (2.3-3.5); Glucose 86 mg/dL (74-106); Lipase 37 U/L (12-53); Osmolality,Calculated 278 (275-295); Potassium 4.1 mMol/L (3.4-5.1); Sodium 141 mMol/L (136-145); Total Protein 6.8 gm/dL (5.7-8.2); eGFR > 60 See Note
--- NOTE | 2025-02-17 15:01 | EDNOTE_ITS ---
ED Female Urogenital RME/HPI General Chief complaint: Urogenital-Female Stated complaint: BACK PAIN, DIAG WITH UTI x 2 DAYS Time Seen by Provider: 02/17/25 14:36 Arrival date/time: 02/17/25 13:00 Limitations: no limitations RME / HPI RME / HPI Narrative: 34 year old female with history of recurrent UTIs and previous admissions for sepsis 2/2 UTI presents to the ED for evaluation of worsening UTI symptoms. States she developed dysuria and lower back pain 1 week ago and consulted her PCP. Was diagnosed with a UTI and started on Sumycin. 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 Patient reports worsening lower back pain that is accompanied by nausea and chills in the last 24 hours. Denies fevers, abdominal pain, vomiting, or other associated symptoms. Related Data Home Medications ?Medication ?Instructions ?Recorded ?Confirmed semaglutide (weight loss) 1 mg/0.5 1 mg subcut QWEEK 1 06/19/23 05/08/24 mL subcutaneous pen injector (Wegovy) Previous Rx's ?Medication ?Instructions ?Recorded meloxicam 7.5 mg tablet 7.5 mg PO QDAY #10 tabs 06/16 08/10 ibuprofen 800 mg tablet 800 mg PO TID PRN pain #30 t abs 10/30/24 Allergies Allergy/AdvReac Type Severity Reaction Status Date / Time cefazolin (From [facility]) Allergy Severe Hives Verified 02/17/25 13:04 Sulfa (Sulfonamide Allergy Severe Hives Verified 02/17/25 13:04 Antibiotics) Tetracyclines Allergy Severe Hives Verified 02/17/25 13:04 Review of Systems Review of Systems Systems Reviewed: All systems reviewed, normal except as documented Past Medical History Past Medical History NEUROLOGIC: Positive Neurological Disorders and Migraine GASTROINTESTINAL: Positive Gastrointestinal Disorders and Obesity GENITOURINARY: Positive Kidney Stones REPRODUCTIVE: Positive Previous Pregnancies PSYCHO/SOCIAL: Positive Depression and Anxiety OTHER HISTORY: Positive Chicken Pox Family History FAMILY HISTORY: Positive Family Cardiac Disorders, Family Cancer and Family Surgery Surgical History SURGICAL: Positive Tubal Ligation and Section Social History SMOKING STATUS: Never smoker SECOND HAND EXPOSURE: No ED Exam General Limitations: Present no limitations General appearance: Present alert and in no apparent distress Head Head exam: Present atraumatic, normocephalic and normal inspection Eye Eye exam: Present normal appearance, PERRL and EOMI ENT ENT exam: Present normal exam, normal oropharynx and mucous membranes moist Neck Neck exam: Present normal inspection, full ROM and trachea midline Chest Chest inspection: Present normal inspection and symmetric chest wall rise Respiratory Respiratory exam: Present normal lung sounds bilaterally Cardiovascular Cardiovascular exam: Present regular rate, normal rhythm and normal heart sounds Abdominal Exam Abdominal exam: Present soft and normal bowel sounds Extremities Exam Extremities exam: Present normal inspection and full ROM Back Exam Back exam: Present normal inspection and full ROM Neurological Exam Neurological exam: Present alert, oriented X3 and CN II-XII intact Psychiatric Psychiatric exam: Present normal affect and normal mood Skin Skin exam: Present warm, dry, intact and normal color Course Quality Measures none Orders Category Date Time Status CT abdomen pelvis wo con Stat Exams 02/17/25 13:36 Completed CBC Stat Lab 02/17/25 14:13 Completed Comprehensive Metabolic Panel Stat Lab 02/17/25 14:13 Completed Lactic Acid [Lactate (Lactic Acid)] Stat Lab 02/17/25 14:13 Completed Lipase Stat Lab 02/17/25 14:13 Completed UA, C/S IF [Urinalysis, C/S if Indicated] Stat Lab 02/17/25 14:20 Completed Nitrofurantoin Macro [Macrobid] Med 02/17/25 15:31 Once 100 mg PO X1 ONE Vital Signs Vital signs: Vital Signs Pulse Rate 90 02/17/25 13:10 Respiratory Rate 18 02/17/25 13:10 Blood Pressure 135/82 H 02/17/25 13:10 Pulse Oximetry (%) 98 02/17/25 13:10 Oxygen Delivery Method Room Air 02/17/25 13:10 Pulse ox is 98% on room air which is adequate. Urogenital - Female MDM Narrative MDM Narrative:: IEdith, ivett scribing for and in the presence of Dr. Saldivar. Though she had a positive recent urine and culture, the urine here appears to be negative. Patient is symptomatic and planned to administer a dose of Rocephin here and DC home with instructions to continue her nitrofurantoin. However, patient is allergic to Cefazolin. Instead will give a anderson of nitrofurantoin here and DC home with instructions to continue antibiotic at home. Patient data External records reviewed:: [facility] previous records (I reviewed ED visit on 10/30/2024 ) Clinical information provided by:: patient Social determinants that could affect healthcare access:: none Patient has the following chronic illnesses:: recurrent UTIs and previous admissions for sepsis 2/2 UTI How is presenting disease/condition affected by chronic disease/condition?: exacerbated by Evaluation data The following diagnostics were reviewed and interpreted by me:: lab results and radiology exam(s) Lab and/or radiology exams considered but not ordered:: None Interpretation Summary: Ordering Physician: Yoli ZARATE)Danie NP Date of Service: 02/17/25 Procedure(s): CT abdomen pelvis wo con Accession Number(s): [id number] cc: Yoli ZARATE),Danie CHAU; Sunday Royal MD; Candida Uribe PA-C~ Examination: CT abdomen and pelvis without contrast. Coronal 3-D reconstructions. Sagittal 2-D reconstructions. Date and time of exam:February 17, 2025, 1355 hours, comparison October 30, 2024 INDICATIONS: Bilateral flank pain today, history urinary tract infections CTDI: vol (mGy): 11.7 DLP: (mGycm): 727 Technique: Axial images of the abdomen have been obtained, 3 mm slice thickness Intravenous contrast material has not been administered. Low dose protocols were performed. One or more of the following dose reduction techniques were used; automated exposure control, adjustment of the mA and/or KV according to patient size, use of iterative reconstruction technique. Findings: No focal liver or splenic lesions No gallstones 9 mm benign-appearing fat-containing mass in the body the pancreas Bilateral 1 to 3 mm renal calculi No hydronephrosis or ureteral calculi Normal appendix. No bowel obstruction Retroverted uterus No bladder mass or bladder calculi IMPRESSION: Numerous bilateral nonobstructing renal calculi Dictated By: Sunday Royal MD Signed By: <Electronically signed by Sunday Royal MD in OV> 02/17/25 3988 Medications / Prescriptions Medications or Prescriptions considered but not ordered:: None Medication administrations:: Medication Administration History Nitrofurantoin Macrocrystals (Nitrofurantoin Macro 100 Mg Capsule) 100 mg PO X1 ONE Stop: 02/17/25 15:32 See above Consultations Consultation(s) initiated? (list below): No Diagnosis Urogenital Female Differential Diagnosis: urinary tract infection, cystitis and other (pyelonephritis, sepsis ) Most likely diagnosis given after review of the tests above:: UTI Admission Indicated Admission indicated?: not indicated Admission Request Was there a request for admission?: No Disposition Plan Disposition Plan: Discharge Discharge Attestation Discharge Attestation: The patient and all family members were given an opportunity to ask questions and understood the discharge instructions. Discharge instructions specifically effects, indications for sooner follow up or return to the emergency department, and the expected course of current diagnosis. Patient condition: Stable Discharge Plan Plan Patient Disposition: HOME (Self Care) Prescriptions/Referrals Prescriptions/Med Rec: No Action meloxicam 7.5 mg tablet 7.5 mg PO QDAY Qty: 10 0RF ibuprofen 800 mg tablet 800 mg PO TID PRN (Reason: pain) Qty: 30 0RF Wegovy 1 mg/0.5 mL pen injector 1 mg SUBCUT QWEEK Patient Comments: INJECT 1 MG SUBCUTANEOUSLY EVERY WEEKL FOR 4 WEEKS Referrals: Candida Uribe PA-C [Primary Care Provider, Family Practice] - In 1 week Problem List Clinical Impression: UTI (urinary tract infection) Patient/Caregiver Discharge Instructions Education Materials: Urinary Tract Infections in Women Additional Instructions: 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 Follow-up with your primary care doctor in 3 to 5 days for recheck. You can return to the emergency department sooner if symptoms worsen or if you notice any new, concerning issues. Print Language: Slovenian Stand Alone Forms: Linda Award Info., Patient Portal Info Letter
[2025-02-17] MEDS: NITROFURANTOIN MACRO 100 MG CAPSULE PO (15:50)
== END 2025-02-17 15:52 | disposition home or self-care (01) ==
PROVIDERS: Nurse Practitioner Primary Care; Emergency Provider Family Medicine; PCP Physician Assistant
DX: N39.0 Urinary tract infection, site not specified (principal); N20.0 Calculus of kidney; Z87.440 Personal history of urinary (tract) infections
CPT/HCPCS: 36415; 74176; 80053; 81001; 83605; 83690; 85025; 99283; A9270